=== PATIENT | male | born 1960 | race Caucasian/White ===

== ENCOUNTER 2016-07-01 17:24 | Inpatient (IN) | payer OTHER ==
[~2016-07-01] VITALS: Ht 177.8 cm; Wt 95.0 kg
[~2016-07-01 17:24] MED LIST: ALL180 PO; ATOR-26 PO; ATV1 PO; CLC/300 PO; FLUT0.0529 NAE; FLX10 PO; GEMF600T3 PO; HYDR-3419 PO; OXYC-57 PO; SIMV20TA2 PO; SIMV40TA2 PO
--- NOTE | 2016-07-01 18:00 | DIAGNOSTIC IMAGING REPORT ---
CHEST ONE VIEW PORTABLE CLINICAL HISTORY: eval for pnea chest pain. Dyspnea. COMPARISON STUDY: 03/09/2009 FINDINGS: The bones soft tissues and hemidiaphragms are normal. The cardiomediastinal silhouette is normal. The lungs are clear. The pulmonary vasculature is normal. IMPRESSION: Negative chest. Electronically signed by: Ced Packer M.D. 07/01/2016 5:59 PM Dictated Date/Time: 07/01/2016 5:59 PM
[2016-07-01] MEDS ORDERED: PRED20TA PO (18:01)
[2016-07-01 18:02] LABS: BASO % 0.1 %; BASO ABS # 0.01 K/uL (0-0.2); COMPLETE YES; EOS % 0.1 %; HEMATOCRIT 45.8 % (42-52); IG% 0.3 %; LYMPH % 10.5 %; LYMPH ABS # 1.65 K/uL (1.2-3.4); MEAN CELL VOLUME 91.1 fL (80-100); MEAN CORPUSCULAR HEMOGLOBIN 33.6 pg (25-34); MEAN CORPUSCULAR HGB CONC 36.9 g/dl (32-36); MEAN PLATELET VOLUME 10.4 fL (7.4-10.4); MONO % 3.9 %; NEUT % 85.1 %; PLATELET COUNT 100 K/uL (130-400); RED BLOOD COUNT 5.03 M/uL (4.7-6.1); WHITE BLOOD COUNT 15.78 K/uL (4.8-10.8)
[2016-07-01 18:05] LABS: PARTIAL THROMBOPLASTIN RATIO 1.1; PROTHROMBIN TIME (PATIENT) 10.7 SECONDS (9.0-12.0)
[2016-07-01 18:16] LABS: BUN/CREATININE RATIO 10.5 (10-20); CALCIUM 9.3 mg/dl (8.5-10.1); CREATININE 1.1 mg/dl (0.60-1.40); POTASSIUM 4.1 mmol/L (3.5-5.1)
[2016-07-01] MEDS ORDERED: OPTIRAY 320 IV PRN (18:30)
--- NOTE | 2016-07-01 18:35 | DIAGNOSTIC IMAGING REPORT ---
Venous Doppler left leg LEFT VENOUS DOPP LOWER EXT UNILAT CLINICAL HISTORY: eval for DVT pain. Edema. TECHNIQUE: Venous Doppler COMPARISON STUDY: None FINDINGS: No evidence for deep venous thrombosis. Somewhat dampened venous flow throughout. This may secondary to surrounding soft tissue edematous change. IMPRESSION: No evidence for deep venous thrombosis. Nonspecific soft tissue edema. Electronically signed by: Ced Packer M.D. 07/01/2016 6:34 PM Dictated Date/Time: 07/01/2016 6:33 PM
--- NOTE | 2016-07-01 19:10 | DIAGNOSTIC IMAGING REPORT ---
CHEST CTA for PULMONARY ARTERIES CT DOSE: 446.06 mGy.cm HISTORY: Chest pain dyspnea TECHNIQUE: Multiaxial CT images of the chest were performed following the intravenous administration of contrast to evaluate the pulmonary arteries. Maximal intensity projection images were also obtained. COMPARISON STUDY: None. FINDINGS: Bilateral pulmonary emboli. These occupy the right as well as left lower lobe pulmonary arterial vasculature and to a lesser extent upper lobe pulmonary vasculature. No evidence for a central or saddle type embolus. Bibasilar atelectasis. Mid to upper lungs are clear. IMPRESSION: Extensive bilateral pulmonary emboli, primarily involving the right as well as left lower lobe pulmonary arterial distribution. Bibasilar atelectatic change. Electronically signed by: Ced Packer M.D. 07/01/2016 7:09 PM Dictated Date/Time: 07/01/2016 7:05 PM
[2016-07-01] MEDS ORDERED: HEPARIN 25000 UNIT/500 ML D5W ONE (19:18)
[2016-07-01] MEDS ORDERED: HEPARIN SOD 5000 UNIT/0.5 ML CARP ONE (19:19)
--- NOTE | 2016-07-01 19:43 | EMERGENCY ROOM VISIT NOTE ---
History Report prepared by Tom: Daisha Omer Under the Supervision of: Dr. Mark Rico M.D. First contact with patient: 17:31 Chief Complaint: CARDIAC ASSESSMENT Stated Complaint: SOB, LT LEG SWELLING Nursing Triage Summary: shortness of breath. flu like symptoms for the past week and a half. left lower leg swelling. having chest pains. History of Present Illness The patient is a 55 year old male who presents to the Emergency Room with complaints of persistent shortness of breath that began about 4 days ago. His shortness of breath is worse with exertion and improved with rest. The patient initially had cold-like symptoms 2 weeks ago. 4 days ago, his cold symptoms started to improve but he developed shortness of breath. At that time he also noticed chest pain which he describes as sharp and sore when he takes deep breaths. He also complains of back pain. Per patient's , the patient seems to be moving slow in general because he has trouble catching his breath. He was seen by a [facility] doctor yesterday and was diagnosed with bronchitis and put on doxycycline and Prednisone. The patient is unsure if he has had a fever, but notes that he starts to sweat when exerting himself. Today, the patient noticed swelling and a purple color to his left leg. He states that it feels stiff and it feels like he is dragging a boat anchor when he walks. The patient does have a history of left leg pain due to nerve damage since a spinal fusion, but he had more pain than usual today radiation down his left thigh from his groin. The patient is a smoker. He is a smoker. He does not have a personal history of blood clots in his lungs or legs, although he notes that his father has a history of blood clots in his lungs. Source of History: patient Onset: 4 days ago Position: other (global - shortness of breath) Timing: other (persistent) Modifying Factors (Worsening): exertion Modifying Factors (Relieving): rest Associated Symptoms: + chest pain (with deep breaths) Note: Other symptoms: purple and swollen left leg Review of Systems See HPI for pertinent positives & negatives. A total of 10 systems reviewed and were otherwise negative. Past Medical & Surgical Medical Problems: (1) Pulmonary embolism Surgical Problems: (1) H/O spinal fusion Family History Blood clots Diabetes mellitus Social History Smoking Status: Current Every Day Smoker Marital Status: Occupation Status: employed Current/Historical Medications Scheduled Doxycycline Hyclate (Vibramycin), 100 MG PO BID Gabapentin (Neurontin), 300 MG PO HS Prednisone (Prednisone), 20 MG PO DAILY Scheduled PRN Albuterol Hfa (Ventolin Hfa), 2 PUFFS INH Q4H PRN for Shortness of Breath Allergies Coded Allergies: Penicillins (Verified Allergy, Unknown, NAUSEA/VOMITING, 08/07/13) Physical Exam Vital Signs Date Time Temp Pulse Resp B/P Pulse Ox O2 Delivery O2 Flow Rate FiO2 07/01/16 19:10 94 07/01/16 19:07 96 18 147/83 98 Room Air 07/01/16 17:53 96 Room Air 07/01/16 17:26 37.3 122 18 162/90 96 Physical Exam Constitutional: Vital signs reviewed. Eyes: Pupils are equal round reactive to light. Conjunctiva are noninjected. ENT: Pharynx is clear without erythema or exudate. Mucous membranes are moist. Neck supple without meningeal signs. Respiratory: Clear to auscultation bilaterally. Breath sounds are equal bilaterally. Cardiovascular: Tachycardic with a rate of 110 and regular rhythm. No rubs or gallops. GI: Soft, nondistended and nontender. Bowel sounds are present. Musculoskeletal: Left leg is swollen and discolored. Normal distal pulses. Integumentary: No cyanosis. Neurological: The patient is awake and alert. No focal deficits. Psychiatric: Normal affect. Medical Decision & Procedures ER Provider Diagnostic Interpretation: X-ray results as stated below per interpretation by me and the radiologist. Other radiology results as stated below per my review and the radiologist's interpretation: Venous Doppler left leg LEFT VENOUS DOPP LOWER EXT UNILAT CLINICAL HISTORY: eval for DVT pain. Edema. TECHNIQUE: Venous Doppler COMPARISON STUDY: None FINDINGS: No evidence for deep venous thrombosis. Somewhat dampened venous flow throughout. This may secondary to surrounding soft tissue edematous change. IMPRESSION: No evidence for deep venous thrombosis. Nonspecific soft tissue edema. Electronically signed by: Ced Packer M.D. 07/01/2016 6:34 PM Dictated Date/Time: 07/01/2016 6:33 PM CHEST ONE VIEW PORTABLE CLINICAL HISTORY: eval for pnea chest pain. Dyspnea. COMPARISON STUDY: 03/09/2009 FINDINGS: The bones soft tissues and hemidiaphragms are normal. The cardiomediastinal silhouette is normal. The lungs are clear. The pulmonary vasculature is normal. IMPRESSION: Negative chest. Electronically signed by: Ced Packer M.D. 07/01/2016 5:59 PM Dictated Date/Time: 07/01/2016 5:59 PM CHEST CTA for PULMONARY ARTERIES CT DOSE: 446.06 mGy.cm HISTORY: Chest pain dyspnea TECHNIQUE: Multiaxial CT images of the chest were performed following the intravenous administration of contrast to evaluate the pulmonary arteries. Maximal intensity projection images were also obtained. COMPARISON STUDY: None. FINDINGS: Bilateral pulmonary emboli. These occupy the right as well as left lower lobe pulmonary arterial vasculature and to a lesser extent upper lobe pulmonary vasculature. No evidence for a central or saddle type embolus. Bibasilar atelectasis. Mid to upper lungs are clear. IMPRESSION: Extensive bilateral pulmonary emboli, primarily involving the right as well as left lower lobe pulmonary arterial distribution. Bibasilar atelectatic change. Electronically signed by: Ced Packer M.D. 07/01/2016 7:09 PM Dictated Date/Time: 07/01/2016 7:05 PM Laboratory Results 07/01/16 17:48 Red Blood Count 5.03, Mean Corpuscular Volume 91.1, Mean Corpuscular Hemoglobin 33.6, Mean Corpuscular Hemoglobin Concent 36.9, Mean Platelet Volume 10.4, Neutrophils (%) (Auto) 85.1, Lymphocytes (%) (Auto) 10.5, Monocytes (%) (Auto) 3.9, Eosinophils (%) (Auto) 0.1, Basophils (%) (Auto) 0.1, Neutrophils # (Auto) 13.44, Lymphocytes # (Auto) 1.65, Monocytes # (Auto) 0.61, Eosinophils # (Auto) 0.02, Basophils # (Auto) 0.01 07/01/16 17:48 Test 07/01/16 17:48 07/01/16 17:50 White Blood Count 15.78 K/uL (4.8-10.8) Red Blood Count 5.03 M/uL (4.7-6.1) Hemoglobin 16.9 g/dL (14.0-18.0) Hematocrit 45.8 % (42-52) Mean Corpuscular Volume 91.1 fL (80-100) Mean Corpuscular Hemoglobin 33.6 pg (25-34) Mean Corpuscular Hemoglobin Concent 36.9 g/dl (32-36) Platelet Count 100 K/uL (130-400) Mean Platelet Volume 10.4 fL (7.4-10.4) Neutrophils (%) (Auto) 85.1 % Lymphocytes (%) (Auto) 10.5 % Monocytes (%) (Auto) 3.9 % Eosinophils (%) (Auto) 0.1 % Basophils (%) (Auto) 0.1 % Neutrophils # (Auto) 13.44 K/uL (1.4-6.5) Lymphocytes # (Auto) 1.65 K/uL (1.2-3.4) Monocytes # (Auto) 0.61 K/uL (0.11-0.59) Eosinophils # (Auto) 0.02 K/uL (0-0.5) Basophils # (Auto) 0.01 K/uL (0-0.2) RDW Standard Deviation 40.6 fL (36.4-46.3) RDW Coefficient of Variation 12.2 % (11.5-14.5) Immature Granulocyte % (Auto) 0.3 % Immature Granulocyte # (Auto) 0.05 K/uL (0.00-0.02) Prothrombin Time 10.7 SECONDS (9.0-12.0) Prothromb Time International Ratio 1.0 (0.9-1.1) Activated Partial Thromboplast Time 27.8 SECONDS (21.0-31.0) Partial Thromboplastin Ratio 1.1 Anion Gap 10.0 mmol/L (3-11) Est Creatinine Clear Calc Drug Dose 90.3 ml/min Estimated GFR () 88.4 Estimated GFR (Non- 76.2 BUN/Creatinine Ratio 10.5 (10-20) Calcium Level 9.3 mg/dl (8.5-10.1) Bedside D-Dimer > 450 ng/mlFEU (0-450) Bedside Troponin I 0.000 ng/ml (0-0.045) Laboratory results as reviewed by me. Medications Administered Medications (Trade) Dose Ordered Sig/Narciso Route Start Time Stop Time Status Last Admin Dose Admin Heparin Sodium/ Dextrose (Heparin 25,000 Unit/500ml D5W) 25,000 unit STK-MED ONCE .ROUTE 07/01/16 19:18 07/01/16 19:20 DC 07/01/16 19:28 25,000 UNIT Heparin Sodium (Porcine) (Heparin Sq 5000 Unit/0.5ml) 10,000 unit STK-MED ONCE .ROUTE 07/01/16 19:19 07/01/16 19:20 DC 07/01/16 19:29 7,000 UNIT ECG Indication: SOB/dyspnea Rate (beats per minute): 110 Rhythm: normal sinus Findings: no acute ischemic change, no ectopy ED Course 1731: The patient was evaluated in room C6. A complete history and physical exam was performed. 1824: I reassessed the patient and talked to him about ultrasound results. I discussed the risks of heparin. Ordered Heparin Sodium/Dextrose 1 ea. 1914: I reassessed the patient and discussed the rest of his results with him. He agreed with the treatment plan. 1923: I discussed the [facility] The patient will be evaluated for further management. Medical Decision This is a 55-year-old male who presents with chest pain, shortness of breath, back pain and left leg pain and swelling. Differential diagnosis includes DVT, pulmonary emboli, pneumonia, pneumothorax, pleural effusion, pericarditis. I did perform a limited focused review of portions of the patient's old chart on the electronic medical record. The patient has had no recent pertinent visits to this hospital. I did evaluate the patient as noted above. The patient has a history concerning for pulmonary embolism. He has had chest pain and shortness of breath with back pain and developed left leg swelling and pain. He is a smoker and states that he has not been active since he has been sick over the past 2 weeks. IV access was established. 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 I did order and personally review the patient's 12-lead EKG and chest x-ray as described above. I did order and review the patient's blood work as noted in the electronic medical record. I did order an ultrasound of the left lower extremity. To me it looked like he had a clot in the leg but the radiologist read it as negative. I did order a CT of the chest. I did review the images myself as well as the radiology report as described above. He does have multiple bilateral pulmonary emboli. The patient was started on IV heparin after I discuss risks and benefits. I did discuss the test results with the patient and his family. I did discuss the case with Dr. Garcia who admitted the patient. Consults Time Called: 1916 Consulting Physician: Dr. Neli Spence Hospitalist Returned Call: 1923 I discussed the case with him. The patient will be evaluated for further management. Impression Primary Impression: Multiple pulmonary emboli Critical Care I have personally spent greater than 30 minutes of critical care time in the direct management of this patient. This includes bedside care, interpretation of diagnostic studies, and testing, discussion with consultants, patient, and family members, and other required patient management activities. This 30 minutes is in excess of all separately billable procedures. Scribe Attestation The scribe's documentation has been prepared under my direct and personally reviewed by me in its entirety. I confirm that the note above accurately reflects all work, treatment, procedures, and medical decision making performed by me. Departure Information Dispostion Being Evaluated By Hospitalist Renan Nguyen M.D. (PCP) Patient Instructions [facility]
[2016-07-01] MEDS ORDERED: ACETAMINOPHEN 325 MG TAB PO PRN (19:45)
[2016-07-01] MEDS ORDERED: ONDANSETRON INJ 2 MG/ML 2 ML VIAL IV PRN (19:45)
[2016-07-01 20:58] VITALS: O2SAT 98; Ht 177.8 cm; Wt 95.0 kg
[2016-07-01 21:07] VITALS: BP 145/77; PULSE 93; TEMP 37.2; O2SAT 96
[2016-07-01] MEDS ORDERED: GABAPENTIN 300 MG CAP PO ONE (21:52)
--- NOTE | 2016-07-01 21:52 | History and Physical ---
History & Physical Date & Time of Service: Jul 01, 2016 at 21:52 Chief Complaint: chest pain, shortness of breath . Primary Care Physician: Renan Love M.D. . History of Present Illness Source: patient, family, clinic records, hospital records 55 YO male followed by Dr. Love. He generally enjoys relatively good health. Had upper respiratory symptoms last week- sneezing, nasal congestion, rhinorrhea. Symptoms improved. Subsequently developed nonproductive cough and dyspnea. Evaluated in clinic a few days ago; prescribed doxycycline, prednisone, albuterol for bronchitis. Today he noted increasing shortness of breath, dyspneic after walking just 5 steps. Also noted right-sided pleuritic chest pain and left lower extremity swelling and discomfort. Came to ED for evaluation. CTA chest demonstrated multiple bilateral PE's. No recent travel. No bedrest. No recent surgeries. No prior personal history of VTE. Father reportedly had pulmonary embolism. . Past Medical/Surgical History Chronic Medical Problems: (1) Dyslipidemia Status: Chronic (2) History of Lyme disease Status: Chronic (3) Spinal stenosis of lumbar region Status: Chronic (4) Tobacco abuse Status: Chronic Surgical Problems: (1) H/O sinus surgery Status: Chronic (2) H/O spinal fusion Status: Chronic . Family History MOTHER Diabetes mellitus Breast cancer GRANDMOTHER Diabetes mellitus FATHER COPD (chronic obstructive pulmonary disease) Pulmonary embolism Social History Smoking Status: Current Every Day Smoker Alcohol Use: none Marital Status: Occupational Status: employed Immunizations History of Influenza Vaccine: Yes History of Tetanus Vaccine?: No History of Pneumococcal: No History of Hepatitis B Vaccine: No Multi-Drug Resistant Organisms History of MDRO: No Allergies Coded Allergies: Penicillins (Verified Allergy, Unknown, NAUSEA/VOMITING, 08/07/13) Home Medications Scheduled Apixaban (Eliquis), 10 MG PO UD Doxycycline Hyclate (Vibramycin), 100 MG PO BID Gabapentin (Neurontin), 300 MG PO HS Prednisone (Prednisone), 20 MG PO DAILY Scheduled PRN Albuterol Hfa (Ventolin Hfa), 2 PUFFS INH Q4H PRN for Shortness of Breath Review of Systems Constitutional: No fever, No weight loss Eyes: + diplopia (chronic), No worsening of vision ENT: + nasal symptoms, No hearing loss Respiratory: + problem reported (as noted above) Cardiovascular: + problem reported (as noted above) Abdomen: + nausea (mild), No GI bleeding, No diarrhea, No pain, No vomiting Musculoskeletal: + problem reported (back pain) Genitourinary - Male: No dysuria, No hematuria Neurologic: + problem reported (chronic LLE pain & weakness) Endocrine: No excessive thirst, No excessive urination Hematologic / Lymphatic: No abnormal bleeding/bruising Integumentary: No new/changing skin lesions, No rash Physical Exam Vital Signs Date Time Temp Pulse Resp B/P Pulse Ox O2 Delivery O2 Flow Rate FiO2 07/01/16 21:07 37.2 93 18 145/77 96 Room Air 07/01/16 20:58 98 Room Air 07/01/16 19:10 94 07/01/16 19:07 96 18 147/83 98 Room Air 07/01/16 17:53 96 Room Air 07/01/16 17:26 37.3 122 18 162/90 96 General Appearance: WD/WN, no apparent distress Head: normocephalic, atraumatic Eyes: normal inspection, PERRL, EOMI, sclerae normal (conjunctivae normal) ENT: normal ENT inspection, hearing grossly normal, pharynx normal Neck: supple, no adenopathy, thyroid normal, no JVD, trachea midline Respiratory/Chest: lungs clear, no respiratory distress, no accessory muscle use Cardiovascular: regular rate, rhythm, no edema, no gallop, no JVD, no murmur Abdomen/GI: normal bowel sounds, non tender, soft, no organomegaly, no pulsatile mass Extremities/Musculoskelatal: + pertinent finding (1+ edema of left lower extremity; no calf tenderness) Neurologic/Psych: undercollar maker II-XII nml as tested (PERRL), no motor/sensory deficits ( grossly intact), alert, normal mood/affect, oriented x 3 Skin: normal color, warm/dry, no rash Lymphatic: no adenopathy Diagnostics Laboratory Results Results Past 24 Hours Test 07/01/16 17:48 07/01/16 17:50 Range/Units White Blood Count 15.78 4.8-10.8 K/uL Red Blood Count 5.03 4.7-6.1 M/uL Hemoglobin 16.9 14.0-18.0 g/dL Hematocrit 45.8 42-52 % Mean Corpuscular Volume 91.1 80-100 fL Mean Corpuscular Hemoglobin 33.6 25-34 pg Mean Corpuscular Hemoglobin Concent 36.9 32-36 g/dl Platelet Count 100 130-400 K/uL Mean Platelet Volume 10.4 7.4-10.4 fL Neutrophils (%) (Auto) 85.1 % Lymphocytes (%) (Auto) 10.5 % Monocytes (%) (Auto) 3.9 % Eosinophils (%) (Auto) 0.1 % Basophils (%) (Auto) 0.1 % Neutrophils # (Auto) 13.44 1.4-6.5 K/uL Lymphocytes # (Auto) 1.65 1.2-3.4 K/uL Monocytes # (Auto) 0.61 0.11-0.59 K/uL Eosinophils # (Auto) 0.02 0-0.5 K/uL Basophils # (Auto) 0.01 0-0.2 K/uL RDW Standard Deviation 40.6 36.4-46.3 fL RDW Coefficient of Variation 12.2 11.5-14.5 % Immature Granulocyte % (Auto) 0.3 % Immature Granulocyte # (Auto) 0.05 0.00-0.02 K/uL Prothrombin Time 10.7 9.0-12.0 SECONDS Prothromb Time International Ratio 1.0 0.9-1.1 Activated Partial Thromboplast Time 27.8 21.0-31.0 SECONDS Partial Thromboplastin Ratio 1.1 Sodium Level 139 136-145 mmol/L Potassium Level 4.1 3.5-5.1 mmol/L Chloride Level 103 98-107 mmol/L Carbon Dioxide Level 26 21-32 mmol/L Anion Gap 10.0 3-11 mmol/L Blood Urea Nitrogen 12 7-18 mg/dl Creatinine 1.10 0.60-1.40 mg/dl Est Creatinine Clear Calc Drug Dose 90.3 ml/min Estimated GFR () 88.4 Estimated GFR (Non- 76.2 BUN/Creatinine Ratio 10.5 10-20 Random Glucose 148 70-99 mg/dl Calcium Level 9.3 8.5-10.1 mg/dl Bedside D-Dimer > 450 0-450 ng/mlFEU Bedside Troponin I 0.000 0-0.045 ng/ml Diagnostic Radiology CHEST ONE VIEW PORTABLE IMPRESSION: Negative chest. Electronically signed by: Ced Packer M.D. 07/01/2016 5:59 PM CHEST CTA for PULMONARY ARTERIES FINDINGS: Bilateral pulmonary emboli. These occupy the right as well as left lower lobe pulmonary arterial vasculature and to a lesser extent upper lobe pulmonary vasculature. No evidence for a central or saddle type embolus. Bibasilar atelectasis. Mid to upper lungs are clear. IMPRESSION: Extensive bilateral pulmonary emboli, primarily involving the right as well as left lower lobe pulmonary arterial distribution. Bibasilar atelectatic change. Electronically signed by: Ced Packer M.D. 07/01/2016 7:09 PM LEFT VENOUS DOPP LOWER EXT UNILAT FINDINGS: No evidence for deep venous thrombosis. Somewhat dampened venous flow throughout. This may secondary to surrounding soft tissue edematous change. IMPRESSION: No evidence for deep venous thrombosis. Nonspecific soft tissue edema. Electronically signed by: Ced Packer M.D. 07/01/2016 6:34 PM . Impression Assessment and Plan ACUTE BILATERAL PULMONARY EMBOLI (present on admission) History as detailed above. Recent URI, but not severely ill and not at bedrest. No recent travel, surgery. He is a smoker. Father apparently had PE. However, work-up for hypercoagulable conditions not appropriate at this time per guidelines. Venous duplex findings surprising for absence of DVT LLE. Either (1) patient had a proximal clot that embolized that is no longer present in the lower extremity or (2) he has a more proximal (e.g., pelvic) clot. May be useful to do CT of abdomen, pelvis, proximal lower extremities with contrast, but should wait at least 24 hours between administrations of IV contrast. IV heparin started in ED. Transition to oral agent- pros and cons of warfarin vs newer agents discussed. Check TTE to assess RV parameters. Thigh-high RENATA LLE to try to prevent / minimize post-thrombotic syndrome. Patient should maintain routine cancer screening per guidelines. Suggested outpatient Hematology consultation for long-term recommendations regarding duration of therapy and possible work-up for hypercoagulable conditions. TOBACCO USE Smoking cessation counseling. DISPOSITION Admitted to Telemetry Unit. Expected discharge to home. Family Medicine follow-up with Dr. Love. . Advanced Directives Existing Advance Directive: No Existing Living Will: No Existing Power of Production Laborer: No VTE Prophylaxis VTE Risk Assessment Done? Y/N: Yes Risk Level: High Given or contraindicated: Other Anticoagulation (IV heparin)
[2016-07-01] MEDS ORDERED: OXYCODONE/ACETAMINOPHEN 5-325 TAB PO PRN (22:00)
[2016-07-01] MEDS ORDERED: METHYLPREDNISOLONE IV 40 MG in SYRINGE 0 ML IV STA (22:03)
[2016-07-01] MEDS ORDERED: HEPARIN 25,000 UNIT/500ML D5W 500 ML IV PRN (22:15)
[2016-07-01 23:08] VITALS: BP 129/78; PULSE 89; TEMP 36.3; O2SAT 96
[2016-07-02 02:26] LABS: PARTIAL THROMBOPLASTIN RATIO 1.7
[2016-07-02] MEDS ORDERED: HEPARIN IV BOLUS 3,000 UNIT in SYRINGE 0 ML IV STA (02:47)
[2016-07-02 04:18] VITALS: BP 108/67; PULSE 75; TEMP 36.4; O2SAT 91
[2016-07-02 07:58] VITALS: BP 116/74; PULSE 81; TEMP 36.9; O2SAT 94
[2016-07-02 09:11] LABS: PARTIAL THROMBOPLASTIN RATIO 1.9
[2016-07-02] MEDS ORDERED: APIX1TAB3 PO (09:32)
--- NOTE | 2016-07-02 09:37 | Discharge Instructions ---
Discharge Instructions Admission Reason for Admission: Pulmonary Embolism Discharge Discharge Diagnosis / Problem: acute pulmonary embolism Discharge Goals Goal(s): Decrease discomfort Activity Recommendations Activity Limitations: resume your previous activity . Instructions / Follow-Up Instructions / Follow-Up FOLLOWUP WITH FAMILY DOCTOR Renan Clark ON Jul AT 12:50PM FOLLOWUP WITH HEMATOLOGY/ONCOLOGY WITH FAMILY DOCTOR REFERRAL. DURATION OF ANTICOAGULATION WITH ELIQUIS PER FAMILY DOCTOR OR HEMATOLOGY/ ONCOLOGY. TO TAKE ELIQUIS 10MG PO TWICE DAILY FOR 7 DAYS THEN ELIQUIS 5MG PO TWICE DAILY UNTIL FURTHER INSTRUCTION FROM FAMILY DOCTOR OR HEMATOLOGY/ONCOLOGY. Current Hospital Diet Patient's current hospital diet: Regular Diet Discharge Diet Recommended Diet: AHA Diet (Heart Healthy) Pending Studies Studies pending at discharge: no Medical Emergencies . Who to Call and When: Medical Emergencies: If at any time you feel your situation is an emergency, please call 911 immediately. . Non-Emergent Contact Non-Emergency issues call your: Primary Care Provider . . "Provider Documentation" section prepared by Naveed Ferguson. VTE Core Measure Inpt VTE Proph given/why not?: Other Anticoagulation (IV HEPARIN)
[2016-07-02] MEDS ORDERED: APIXABAN 2.5 MG TAB PO SCH (10:00)
[2016-07-02 10:31] VITALS: BP 116/74; PULSE 81; TEMP 36.9; O2SAT 94
--- NOTE | 2016-07-02 12:05 | ECHOCARDIOGRAM REPORT ---
*NOTICE TO RECEIVING DEMOCRAT AGENCY This information is strictly Confidential and protected under [place] law. [place] law prohibits you from making any further disclosure of this information unless further disclosure is expressly permitted by the written consent of the person to whom it pertains or is authorized by law. A general authorization for the release of medical or other information is not sufficient for this purpose. Hospital accepts no responsibility if the information is made available to any other person, INCLUDING THE PATIENT. Interpretation Summary * Name: STEFAN THOMAS Study Date: 07/02/2016 12:00 PM BP: 116/74 mmHg * Patient Location: C.2E\S\E210\S\1 HR: 79 * : 1960 (M/d/yyyy) Gender: Male Height: 70 in * Age: 55 yrs Ethnicity: [place] Weight: 209 lb * Ordering Physician: Naveed Ferguson * Referring Physician: Self, Referred * Performed By: Jessica Centeno, [facility] * * Reason For Study: PE * BSA: 2.1 m2 * -- Conclusions -- * The left ventricle is normal in size. * There is moderate concentric left ventricular hypertrophy. * The left ventricular wall motion is normal. * Left ventricular systolic function is normal. * Ejection Fraction = 60-65%. * The right ventricle is normal in size and function. * There is trace tricuspid regurgitation. * Doppler findings do not suggest pulmonary hypertension. Procedure Details * A complete two-dimensional transthoracic echocardiogram was performed (2D, M-mode, Doppler and color flow Doppler). Left Ventricle * The left ventricle is normal in size. * There is moderate concentric left ventricular hypertrophy. * Left ventricular systolic function is normal. * Ejection Fraction = 60-65%. * The left ventricular wall motion is normal. Right Ventricle * The right ventricle is normal in size and function. Atria * Borderline left atrial enlargement. * Right atrial size is normal. * No ASD detected; PFO is not assessed. Mitral Valve * The mitral valve anatomy is normal. * There is no mitral valve stenosis. * There is trace mitral regurgitation. Tricuspid Valve * The tricuspid valve anatomy is normal. * There is no tricuspid stenosis. * There is trace tricuspid regurgitation. * Doppler findings do not suggest pulmonary hypertension. Aortic Valve * The aortic valve is trileaflet. * Aortic valve sclerosis mild, without significant aortic valvular stenosis. * No aortic regurgitation is present. Pulmonic Valve * The pulmonic valve is not well visualized. Great Vessels * The aortic root is normal size. Pericardium/Pleural * There is no pericardial effusion. MMode 2D Measurements and Calculations IVSd 1.7 cm IVSs 1.9 cm LVIDd 3.7 cm LVIDs 2.3 cm LVPWd 1.3 cm LVPWs 1.4 cm IVS/LVPW 1.3 FS 38.9 % EDV(Teich) 59.2 ml ESV(Teich) 17.7 ml EF(Teich) 70.1 % EDV(cubed) 51.9 ml ESV(cubed) 11.8 ml EF(cubed) 77.2 % % IVS thick 15.7 % % LVPW thick 6.5 % LV mass(C)d 212.5 grams LV mass(C)dI 99.9 grams/m\S\2 LV mass(C)s 140.1 grams LV mass(C)sI 65.9 grams/m\S\2 SV(Teich) 41.5 ml SI(Teich) 19.5 ml/m\S\2 SV(cubed) 40.0 ml SI(cubed) 18.8 ml/m\S\2 Ao root diam 3.8 cm Ao root area 11.2 cm\S\2 ACS 2.1 cm LA dimension 4.0 cm LA/Ao 1.1 LVOT diam 1.9 cm LVOT area 2.8 cm\S\2 LVAd ap4 28.4 cm\S\2 LVLd ap4 7.9 cm EDV(MOD-sp4) 85.5 ml EDV(sp4-el) 86.1 ml LVAs ap4 18.2 cm\S\2 LVLs ap4 6.6 cm ESV(MOD-sp4) 44.5 ml ESV(sp4-el) 42.3 ml EF(MOD-sp4) 48.0 % EF(sp4-el) 50.8 % SV(MOD-sp4) 41.0 ml SI(MOD-sp4) 19.3 ml/m\S\2 SV(sp4-el) 43.7 ml SI(sp4-el) 20.6 ml/m\S\2 Doppler Measurements and Calculations MV E max margie 63.6 cm/sec MV A max margie 69.0 cm/sec MV E/A 0.92 MV P1/2t max margie 87.1 cm/sec MV P1/2t 47.0 msec MVA(P1/2t) 4.7 cm\S\2 MV dec slope 542.6 cm/sec\S\2 MV dec time 0.30 sec Ao V2 max 116.4 cm/sec Ao max PG 5.4 mmHg Ao max PG (full) 1.6 mmHg KATHRYN(V,A) 2.4 cm\S\2 KATHRYN(V,D) 2.4 cm\S\2 LV V1 max PG 3.8 mmHg LV V1 max 97.6 cm/sec PA V2 max 102.4 cm/sec PA max PG 4.2 mmHg PI max margie 209.5 cm/sec PI max PG 17.6 mmHg PI dec slope 406.8 cm/sec\S\2 PI P1/2t 150.9 msec
--- NOTE | 2016-07-02 18:57 | Progress Note ---
Internal Med Progress Note Date of Service: Jul 02, 2016. Provider Documentation: SUBJECTIVE: patient feeling better denies any chest pain or sob afebrile patient choose to be on eliquis( Want the eliquis so that he can be discharged soon) OBJECTIVE: Vital Signs-as noted below Exam: General-alert and oriented ENT-normal hearing Neck-no neck masses Lungs-cta b/l no wheezing or crackles Heart-s1 and s2 heard regular rate and rhythm no murmurs Abdomen-soft bowel sounds present non tender no distension Extremities-left lower extremity swollen non tender Neuro-alert and awake moves extremities Lab data as noted below. ASSESSMENT & PLAN: ACUTE BILATERAL PULMONARY EMBOLI (present on admission) on CT scan Unprovoked Family history significant as father had PE IV heparin initiated in ER ECHO moderate LVH otherwise unremarkable Work-up for hypercoagulable conditions not appropriate at this time per guidelines and advise to followup with heme/oncology Left lower extremity swollen but negative for DVT LLE. Either (1) patient had a proximal clot that embolized that is no longer present in the lower extremity or (2) he has a more proximal (e.g., pelvic) clot. May be useful to do CT of abdomen, pelvis, proximal lower extremities with contrast, but should wait at least 24 hours between administrations of IV contrast. Patient choose to be on eliquis. Discharged home on eliquis and notified family doctor for f/u with CT abd/ pelvis with iv contrast to check for any underlying condition for his left lower extremity swelling. HAs appointment with family doctor on Jul 06. Thigh-high RENATA LLE to try to prevent / minimize post-thrombotic syndrome recommended. Patient should maintain routine cancer screening per guidelines. Recommended outpatient Hematology consultation for long-term recommendations regarding duration of therapy and possible work-up for hypercoagulable conditions. TOBACCO USE Smoking cessation counseling. DISPOSITION Discharged home Vital Signs: Date Time Temp Pulse Resp B/P Pulse Ox O2 Delivery O2 Flow Rate FiO2 07/02/16 10:31 36.9 81 16 94 Room Air 07/02/16 08:00 Room Air 07/02/16 07:58 36.9 81 16 116/74 94 Room Air 07/02/16 04:18 36.4 75 18 108/67 91 Room Air 07/02/16 04:00 Room Air 07/01/16 23:59 Room Air 07/01/16 23:08 36.3 89 18 129/78 96 Room Air 07/01/16 21:07 37.2 93 18 145/77 96 Room Air 07/01/16 20:58 98 Room Air 07/01/16 19:10 94 07/01/16 19:07 96 18 147/83 98 Room Air Lab Results: Results Past 24 Hours Test 07/02/16 01:47 07/02/16 08:45 Range/Units Activated Partial Thromboplast Time 44.8 49.4 21.0-31.0 SECONDS Partial Thromboplastin Ratio 1.7 1.9
--- NOTE | 2016-07-02 19:07 | Discharge Summary ---
Discharge Summary Admission Date: Jul 01, 2016 at 21:03 Discharge Date: Jul 02, 2016 Discharge Disposition: Home Principal Diagnosis: B/L PE Secondary Diagnoses/Problems: (1) Dyslipidemia Status: Chronic (2) History of Lyme disease Status: Chronic (3) Spinal stenosis of lumbar region Status: Chronic (4) Tobacco abuse Status: Chronic Procedures: LEFT LOWER EXTREMITY DOPPLER: IMPRESSION: No evidence for deep venous thrombosis. Nonspecific soft tissue edema. CTA CHEST: Extensive bilateral pulmonary emboli, primarily involving the right as well as left lower lobe pulmonary arterial distribution. Bibasilar atelectatic change. ECHO: The left ventricle is normal in size. * There is moderate concentric left ventricular hypertrophy. * The left ventricular wall motion is normal. * Left ventricular systolic function is normal. * Ejection Fraction = 60-65%. * The right ventricle is normal in size and function. * There is trace tricuspid regurgitation. * Doppler findings do not suggest pulmonary hypertension. Medication Reconciliation New Medications: Apixaban (Eliquis) 5 Mg Tab 10 MG PO UD for 30 Days, 3 Refills ELIQUIS 10MG PO TWICE DAILY FOR ONE WEEK THEN ELIQUIS 5MG PO TWICE DAILY Continued Medications: Albuterol Hfa (Ventolin Hfa) 200 Puffs/16833 Mcg Aers 2 PUFFS INH Q4H PRN for Shortness of Breath Doxycycline Hyclate (Vibramycin) 100 Mg Cap 100 MG PO BID, #14 PRESCRIBED 06/30/2016, TAKE DIRECTED UNTIL GONE Gabapentin (Neurontin) 300 Mg Cap 300 MG PO HS, CAP Prednisone (Prednisone) 20 Mg Tab 20 MG PO DAILY, #5 PRESCRIBED 06/30/2016, TAKE DIRECTED UNTIL GONE Admission Information HPI (per Admitting provider): 55 YO male followed by Dr. Love. He generally enjoys relatively good health. Had upper respiratory symptoms last week- sneezing, nasal congestion, rhinorrhea. Symptoms improved. Subsequently developed nonproductive cough and dyspnea. Evaluated in clinic a few days ago; prescribed doxycycline, prednisone, albuterol for bronchitis. Today he noted increasing shortness of breath, dyspneic after walking just 5 steps. Also noted right-sided pleuritic chest pain and left lower extremity swelling and discomfort. Came to ED for evaluation. CTA chest demonstrated multiple bilateral PE's. No recent travel. No bedrest. No recent surgeries. No prior personal history of VTE. Father reportedly had pulmonary embolism. . Physical Exam (per Admitting): General Appearance: WD/WN, no apparent distress Head: normocephalic, atraumatic Eyes: normal inspection, PERRL, EOMI, sclerae normal (conjunctivae normal) ENT: normal ENT inspection, hearing grossly normal, pharynx normal Neck: supple, no adenopathy, thyroid normal, no JVD, trachea midline Respiratory/Chest: lungs clear, no respiratory distress, no accessory muscle use Cardiovascular: regular rate, rhythm, no edema, no gallop, no JVD, no murmur Abdomen/GI: normal bowel sounds, non tender, soft, no organomegaly, no pulsatile mass Extremities/Musculoskelatal: + pertinent finding (1+ edema of left lower extremity; no calf tenderness) 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), no motor/sensory deficits (grossly intact), alert, normal mood/affect, oriented x 3 Skin: normal color, warm/dry, no rash Lymphatic: no adenopathy Physical Exam (per Admitting): General Appearance: WD/WN, no apparent distress Head: normocephalic, atraumatic Eyes: normal inspection, PERRL, EOMI, sclerae normal (conjunctivae normal) ENT: normal ENT inspection, hearing grossly normal, pharynx normal Neck: supple, no adenopathy, thyroid normal, no JVD, trachea midline Respiratory/Chest: lungs clear, no respiratory distress, no accessory muscle use Cardiovascular: regular rate, rhythm, no edema, no gallop, no JVD, no murmur Abdomen/GI: normal bowel sounds, non tender, soft, no organomegaly, no pulsatile mass Extremities/Musculoskelatal: + pertinent finding (1+ edema of left lower extremity; no calf tenderness) 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 ACUTE BILATERAL PULMONARY EMBOLI (present on admission) on CT scan Unprovoked Family history significant as father had PE IV heparin initiated in ER ECHO moderate LVH otherwise unremarkable Work-up for hypercoagulable conditions not appropriate at this time per guidelines and advise to followup with heme/oncology Left lower extremity swollen but negative for DVT LLE. Either (1) patient had a proximal clot that embolized that is no longer present in the lower extremity or (2) he has a more proximal (e.g., pelvic) clot. May be useful to do CT of abdomen, pelvis, proximal lower extremities with contrast, but should wait at least 24 hours between administrations of IV contrast. Patient choose to be on eliquis. Discharged home on eliquis and notified family doctor for f/u with CT abd/ pelvis with iv contrast to check for any underlying condition for his left lower extremity swelling. HAs appointment with family doctor on Jul 06. Thigh-high RENATA LLE to try to prevent / minimize post-thrombotic syndrome recommended. Patient should maintain routine cancer screening per guidelines. Recommended outpatient Hematology consultation for long-term recommendations regarding duration of therapy and possible work-up for hypercoagulable conditions. TOBACCO USE Smoking cessation counseling. DISPOSITION Discharged home Total time spent on discharge = 35MINUTES This includes examination of the patient, discharge planning, medication reconciliation, and communication with other providers. Discharge Instructions Please take this sheet to every appointment for the next month Discharge Instructions Admission Reason for Admission: Pulmonary Embolism Discharge Discharge Diagnosis / Problem: acute pulmonary embolism Discharge Goals Goal(s): Decrease discomfort Activity Recommendations Activity Limitations: resume your previous activity . Instructions / Follow-Up Instructions / Follow-Up FOLLOWUP WITH FAMILY DOCTOR Renan Clark ON Jul AT 12:50PM FOLLOWUP WITH HEMATOLOGY/ONCOLOGY WITH FAMILY DOCTOR REFERRAL. DURATION OF ANTICOAGULATION WITH ELIQUIS PER FAMILY DOCTOR OR HEMATOLOGY/ ONCOLOGY. TO TAKE ELIQUIS 10MG PO TWICE DAILY FOR 7 DAYS THEN ELIQUIS 5MG PO TWICE DAILY UNTIL FURTHER INSTRUCTION FROM FAMILY DOCTOR OR HEMATOLOGY/ONCOLOGY. Current Hospital Diet Patient's current hospital diet: Regular Diet Discharge Diet Recommended Diet: AHA Diet (Heart Healthy) Pending Studies Studies pending at discharge: no Medical Emergencies . Who to Call and When: Medical Emergencies: If at any time you feel your situation is an emergency, please call 911 immediately. . Non-Emergent Contact Non-Emergency issues call your: Primary Care Provider . . "Provider Documentation" section prepared by Naveed Ferguson. VTE Core Measure Inpt VTE Proph given/why not?: Other Anticoagulation (IV HEPARIN)
[2016-07-02] MEDS ORDERED: GABAPENTIN 300 MG CAP PO SCH (21:00)
[2016-07-06] MEDS ORDERED: GABA-113 PO (07:44)
[2016-08-14] MEDS ORDERED: APIX1TAB3 PO (09:29)
== END 2016-07-02 13:11 | disposition home or self-care (01) | DRG 176 ==
LOC: ENRESERVTM → ENRESERVDT → CANRESERV → C.EDC 17:25 → C.2E 21:03
PROVIDERS: ADMIT Hospitalist; ATTEND Internal Medicine
DX: I26.99 Other pulmonary embolism without acute cor pulmonale (principal); J40 Bronchitis, not specified as acute or chronic; M79.605 Pain in left leg; M79.89 Other specified soft tissue disorders; E78.5 Hyperlipidemia, unspecified; I51.7 Cardiomegaly; F17.210 Nicotine dependence, cigarettes, uncomplicated; Z86.19 Personal history of other infectious and parasitic diseases; Z83.2 Family history of diseases of the blood and blood-forming organs and certain disorders involving the immune mechanism; Z79.899 Other long term (current) drug therapy

== ENCOUNTER 2016-07-06 11:42 | Emergency (ER) | payer OTHER ==
[~2016-07-06] VITALS: Ht 177.8 cm; Wt 98.4 kg
[~2016-07-06 11:42] MED LIST changes: -ALL180 PO; +APIX1TAB3 PO; -ATOR-26 PO; -ATV1 PO; -CLC/300 PO; -FLUT0.0529 NAE; -FLX10 PO; +GABA-113 PO; -GEMF600T3 PO; -HYDR-3419 PO; -OXYC-57 PO; +PRED20TA PO; -SIMV20TA2 PO; -SIMV40TA2 PO
[2016-07-06 11:46] VITALS: TEMP 37; Ht 177.8 cm; Wt 98.4 kg
[2016-07-06] MEDS ORDERED: APIX1TAB3 PO (12:03)
[2016-07-06 12:49] LABS: BASO % 0.3 %; BASO ABS # 0.04 K/uL (0-0.2); COMPLETE YES; EOS % 2.9 %; HEMATOCRIT 44.5 % (42-52); IG% 0.5 %; LYMPH % 22.3 %; LYMPH ABS # 2.69 K/uL (1.2-3.4); MEAN CELL VOLUME 92.3 fL (80-100); MEAN CORPUSCULAR HEMOGLOBIN 33.6 pg (25-34); MEAN CORPUSCULAR HGB CONC 36.4 g/dl (32-36); MONO % 8.5 %; NEUT % 65.5 %; PLATELET COUNT 148 K/uL (130-400); RED BLOOD COUNT 4.82 M/uL (4.7-6.1); WHITE BLOOD COUNT 12.06 K/uL (4.8-10.8)
[2016-07-06 13:04] LABS: PARTIAL THROMBOPLASTIN RATIO 1.1; PROTHROMBIN TIME (PATIENT) 11.1 SECONDS (9.0-12.0)
[2016-07-06 13:07] LABS: CREATININE 1.1 mg/dl (0.60-1.40); POTASSIUM 3.8 mmol/L (3.5-5.1)
[2016-07-06 13:18] LABS: URINE APPEARANCE CLEAR (CLEAR); URINE BILIRUBIN NEG (NEG); URINE COLOR YELLOW; URINE EPITHELIAL CELL AUTO 0-5 /lpf (0-5); URINE NITRITE NEG (NEG); URINE PH 5.5 (4.5-7.5); URINE SPECIFIC GRAVITY 1.006 (1.000-1.030); UROBILINOGEN NEG (NEG); ZZUR CULT IF INDIC CLEAN CATCH NO
[2016-07-06] MEDS ORDERED: OPTIRAY 320 IV PRN (13:30)
[2016-07-06 13:32] LABS: MANUAL MICROSCOPIC REQUIRED? NO; REVIEW REQ? NO
--- NOTE | 2016-07-06 15:08 | DIAGNOSTIC IMAGING REPORT ---
ULTRASOUND LEFT LOWER EXTREMITY VENOUS CLINICAL HISTORY: Left leg pain. COMPARISON STUDY: Left lower extremity venous ultrasound dated 07/01/2016. TECHNIQUE: Real-time, grayscale, and color Doppler sonography of the deep veins of the left lower extremity was performed from the inguinal crease to the calf. Compression and augmentation were utilized. FINDINGS: There is no sonographic evidence of deep venous thrombosis identified in the left lower extremity. The common femoral, superficial femoral, and popliteal veins are patent and normally compressible. The greater saphenous vein and the profunda femoris vein at the junction with the common femoral vein are clear. The visualized calf veins are patent. IMPRESSION: There is no sonographic evidence of deep venous thrombosis identified in the left lower extremity. Electronically signed by: Cornelio Gray M.D. 07/06/2016 3:07 PM Dictated Date/Time: 07/06/2016 3:06 PM
--- NOTE | 2016-07-06 16:25 | DIAGNOSTIC IMAGING REPORT ---
ABDOMEN AND PELVIS CT WITH IV AND ORAL CONTRAST CT DOSE: 470.35 mGy.cm HISTORY: Left lower quadrant abdominal pain. Leg swelling. TECHNIQUE: Multiaxial CT images of the abdomen and pelvis were performed following the use of intravenous and oral contrast. COMPARISON STUDY: Chest CTA 07/01/2016. FINDINGS: Bilateral pulmonary emboli are again noted. Groundglass densities within the base the right lower lobe consistent with pulmonary infarcts. No pneumoperitoneum. No pneumatosis. Posterior fusion hardware within the lumbar spine. The liver, gallbladder, pancreas, spleen, adrenal glands, and kidneys are unremarkable. No retroperitoneal lymphadenopathy. Normal caliber abdominal aorta. The IVC is patent. Nonocclusive thrombus within the left common iliac vein and extending into the left external iliac vein. There appears be a small focus of thrombus within the distal right common iliac vein. Mild bladder wall thickening may be due to chronic outlet obstruction. The prostate gland is mildly enlarged. Mild inflammatory change surrounding the partially thrombosed left external iliac vein. No bowel wall thickening or obstruction. IMPRESSION: 1. 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 2. Redemonstration of the bilateral pulmonary emboli. There is an associated right lower lobe pulmonary infarct. Electronically signed by: Jason Melendez M.D. 07/06/2016 4:24 PM Dictated Date/Time: 07/06/2016 4:12 PM
[2016-07-06] MEDS ORDERED: VNTHFA/IN INH (18:01)
[2016-07-06] MEDS ORDERED: DOXY100C2 PO (18:01)
[2016-07-06 18:04] VITALS: BP 146/75; PULSE 78; O2SAT 99
--- NOTE | 2016-07-06 20:58 | EMERGENCY ROOM VISIT NOTE ---
History Report prepared by Tom: Daisha Omer Under the Supervision of: Dr. Romel Strickland M.D. First contact with patient: 12:15 Chief Complaint: LEG PAIN,LEG INJURY Stated Complaint: LEG PAIN History of Present Illness The patient is a 55 year old male who presents to the Emergency Room with complaints of worsening left leg swelling over the past several days. The patient was initially seen in the emergency room for shortness of breath and left leg pain and swelling on July 01 and and was hospitalized after a chest CT revealed PEs. AN ultrasound of his left lower extremity was unrevealing. The patient was discharged on July 02 on Eliquis. Since then, the patient has had increasing swelling to his left leg. This morning, he noticed that his left foot was also swollen. The patient states that the origin of the blood clot was not determined while he was in the hospital. Yesterday, the patient had a follow up with his PCP. The patient had left lower quadrant tenderness on the exam and Dr. Love wanted to schedule him for a CT scan, but the patient's insurance would not cover the scan as an outpatient, so he recommended that the patient come to the ED to be evaluated for his leg swelling as well as his abdominal pain. Pt denies LOC, headache, fevers, chills , diaphoresis, visual changes, neck pain, chest pain, breathing difficulties, nausea, vomiting, back pain, melena, hematochezia, urinary symptoms, numbness, weakness, lymphadenopathy, rash, or other complaints. Source of History: patient Onset: several days ago Position: other (left leg) Quality: other (swelling) Timing: worsening Associated Symptoms: + abdominal pain Review of Systems See HPI for pertinent positives and negatives. A total of ten systems were reviewed and were otherwise negative. Past Medical & Surgical Medical Problems: (1) Dyslipidemia (2) History of Lyme disease (3) Spinal stenosis of lumbar region (4) Tobacco abuse Surgical Problems: (1) H/O sinus surgery (2) H/O spinal fusion Family History Breast cancer MOTHER COPD (chronic obstructive pulmonary disease) FATHER Diabetes mellitus MOTHER GRANDMOTHER Pulmonary embolism FATHER Social History Smoking Status: Current Every Day Smoker Marital Status: Occupation Status: employed Current/Historical Medications Scheduled Apixaban (Eliquis), 10 MG PO BID Doxycycline Hyclate (Vibramycin), 100 MG PO BID Gabapentin (Neurontin), 300 MG PO HS Scheduled PRN Albuterol Hfa (Ventolin Hfa), 2 PUFFS INH Q4H PRN for Shortness of Breath Allergies Coded Allergies: Penicillins (Verified Allergy, Unknown, NAUSEA/VOMITING, 08/07/13) Physical Exam Vital Signs Date Time Temp Pulse Resp B/P Pulse Ox O2 Delivery O2 Flow Rate FiO2 07/06/16 18:04 78 20 146/75 99 Room Air 07/06/16 16:19 78 16 133/72 98 Room Air 07/06/16 14:01 78 16 132/76 99 Room Air 07/06/16 11:46 37.0 101 18 163/81 98 Room Air Physical Exam GENERAL: Awake, alert, well-appearing, in no distress HENT: Normocephalic, atraumatic. Oropharynx unremarkable. EYES: Normal conjunctiva. Sclera non-icteric. NECK: Supple. No nuchal rigidity. FROM. No JVD. RESPIRATORY: Clear to auscultation. CARDIAC: Regular rate, normal rhythm. Extremities warm and well perfused. Pulses equal. ABDOMEN: Soft, non-distended. Some left lower quadrant abdominal tenderness to palpation. No rebound or guarding. No masses. RECTAL: Deferred. MUSCULOSKELETAL: Chest examination reveals no tenderness. The back is symmetrical on inspection without obvious abnormality. There is no CVA tenderness to palpation. No joint edema. LOWER EXTREMITIES: Left lower leg is larger than right. Left lower extremity has 1-2+ pitting edema. Negative William's sign. No discoloration. NEURO: Normal sensorium. No sensory or motor deficits noted. SKIN: No rash or jaundice noted. Medical Decision & Procedures ER Provider Diagnostic Interpretation: Radiology results as stated below per my review and radiologist interpretation. ULTRASOUND LEFT LOWER EXTREMITY VENOUS CLINICAL HISTORY: Left leg pain. COMPARISON STUDY: Left lower extremity venous ultrasound dated 07/01/2016. TECHNIQUE: Real-time, grayscale, and color Doppler sonography of the deep veins of the left lower extremity was performed from the inguinal crease to the calf. Compression and augmentation were utilized. FINDINGS: There is no sonographic evidence of deep venous thrombosis identified in the left lower extremity. The common femoral, superficial femoral, and popliteal veins are patent and normally compressible. The greater saphenous vein and the profunda femoris vein at the junction with the common femoral vein are clear. The visualized calf veins are patent. IMPRESSION: There is no sonographic evidence of deep venous thrombosis identified in the left lower extremity. Electronically signed by: Cornelio Gray M.D. 07/06/2016 3:07 PM Dictated Date/Time: 07/06/2016 3:06 PM ABDOMEN AND PELVIS CT WITH IV AND ORAL CONTRAST CT DOSE: 470.35 mGy.cm HISTORY: Left lower quadrant abdominal pain. Leg swelling. TECHNIQUE: Multiaxial CT images of the abdomen and pelvis were performed following the use of intravenous and oral contrast. COMPARISON STUDY: Chest CTA 07/01/2016. FINDINGS: Bilateral pulmonary emboli are again noted. Groundglass densities within the base the right lower lobe consistent with pulmonary infarcts. No pneumoperitoneum. No pneumatosis. Posterior fusion hardware within the lumbar spine. The liver, gallbladder, pancreas, spleen, adrenal glands, and kidneys are unremarkable. No retroperitoneal lymphadenopathy. Normal caliber abdominal aorta. The IVC is patent. Nonocclusive thrombus within the left common iliac vein and extending into the left external iliac vein. There appears be a small focus of thrombus within the distal right common iliac vein. Mild bladder wall thickening may be due to chronic outlet obstruction. The prostate gland is mildly enlarged. Mild inflammatory change surrounding the partially thrombosed left external iliac vein. No bowel wall thickening or obstruction. IMPRESSION: 1. 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 2. Redemonstration of the bilateral pulmonary emboli. There is an associated right lower lobe pulmonary infarct. Electronically signed by: Jason Melendez M.D. 07/06/2016 4:24 PM Dictated Date/Time: 07/06/2016 4:12 PM Laboratory Results 07/06/16 12:30 Red Blood Count 4.82, Mean Corpuscular Volume 92.3, Mean Corpuscular Hemoglobin 33.6, Mean Corpuscular Hemoglobin Concent 36.4, Mean Platelet Volume 10.0, Neutrophils (%) (Auto) 65.5, Lymphocytes (%) (Auto) 22.3, Monocytes (%) (Auto) 8.5, Eosinophils (%) (Auto) 2.9, Basophils (%) (Auto) 0.3, Neutrophils # (Auto) 7.90, Lymphocytes # (Auto) 2.69, Monocytes # (Auto) 1.02, Eosinophils # (Auto) 0.35, Basophils # (Auto) 0.04 07/06/16 12:30 Test 07/06/16 12:30 07/06/16 13:05 White Blood Count 12.06 K/uL (4.8-10.8) Red Blood Count 4.82 M/uL (4.7-6.1) Hemoglobin 16.2 g/dL (14.0-18.0) Hematocrit 44.5 % (42-52) Mean Corpuscular Volume 92.3 fL (80-100) Mean Corpuscular Hemoglobin 33.6 pg (25-34) Mean Corpuscular Hemoglobin Concent 36.4 g/dl (32-36) Platelet Count 148 K/uL (130-400) Mean Platelet Volume 10.0 fL (7.4-10.4) Neutrophils (%) (Auto) 65.5 % Lymphocytes (%) (Auto) 22.3 % Monocytes (%) (Auto) 8.5 % Eosinophils (%) (Auto) 2.9 % Basophils (%) (Auto) 0.3 % Neutrophils # (Auto) 7.90 K/uL (1.4-6.5) Lymphocytes # (Auto) 2.69 K/uL (1.2-3.4) Monocytes # (Auto) 1.02 K/uL (0.11-0.59) Eosinophils # (Auto) 0.35 K/uL (0-0.5) Basophils # (Auto) 0.04 K/uL (0-0.2) RDW Standard Deviation 41.4 fL (36.4-46.3) RDW Coefficient of Variation 12.2 % (11.5-14.5) Immature Granulocyte % (Auto) 0.5 % Immature Granulocyte # (Auto) 0.06 K/uL (0.00-0.02) Prothrombin Time 11.1 SECONDS (9.0-12.0) Prothromb Time International Ratio 1.0 (0.9-1.1) Activated Partial Thromboplast Time 29.6 SECONDS (21.0-31.0) Partial Thromboplastin Ratio 1.1 Anion Gap 8.0 mmol/L (3-11) Est Creatinine Clear Calc Drug Dose 91.4 ml/min Estimated GFR () 88.4 Estimated GFR (Non- 76.2 BUN/Creatinine Ratio 12.0 (10-20) Calcium Level 9.0 mg/dl (8.5-10.1) Total Bilirubin 0.4 mg/dl (0.2-1) Direct Bilirubin 0.1 mg/dl (0-0.2) Aspartate Amino Transf (AST/SGOT) 15 U/L (15-37) Alanine Aminotransferase (ALT/SGPT) 34 U/L (12-78) Alkaline Phosphatase 115 U/L (45-117) Total Protein 8.0 gm/dl (6.4-8.2) Albumin 3.6 gm/dl (3.4-5.0) Lipase 257 U/L (73-393) Urine Color YELLOW Urine Appearance CLEAR (CLEAR) Urine pH 5.5 (4.5-7.5) Urine Specific [place] 1.006 (1.000-1.030) Urine Protein NEG (NEG) Urine Glucose (UA) NEG (NEG) Urine Ketones NEG (NEG) Urine Occult Blood TRACE (NEG) Urine Nitrite NEG (NEG) Urine Bilirubin NEG (NEG) Urine Urobilinogen NEG (NEG) Urine Leukocyte Esterase NEG (NEG) Urine WBC (Auto) 0 /hpf (0-5) Urine RBC (Auto) 0-4 /hpf (0-4) Urine Hyaline Casts (Auto) 0 /lpf (0-5) Urine Epithelial Cells (Auto) 0-5 /lpf (0-5) Urine Bacteria (Auto) NEG (NEG) Laboratory results reviewed by [facility] ED Course 1306: I spoke with Dr. Gray - Radiology who recommended both IV and oral contrast for the CT scan. 1308: The patient was evaluated in room B2. A complete history and physical exam was performed. 1728: I reassessed the patient and updated him on results so far. 1740: I discussed the case with Dr. Ferguson - [facility] Hospitalist. We agreed with a treatment plan. 1800: I reevaluated the patient. Discussed results and discharge instructions: He verbalized understanding and agreement. He will continue his medications and follow up with hematology. The patient is ready for discharge. Medical Decision Triage Nursing notes reviewed. The patient's presentation and history were concerning for leg swelling. Etiologies such as DVT, infection, muscular, lymphedema, idiopathic, CHF, as well as others were entertained. The patient was evaluated. He had swelling in the leg which she noted worsened since hospitalization. His primary was concerned about a pelvic issue causing his swelling and recent PE. He had a slight leukocytosis on CBC. Chemistry panel was unremarkable. Urinalysis, LFTs and lipase were unremarkable. The patient underwent ultrasound imaging which was negative. The patient had a full prep CT scan and this revealed pelvic thrombosis. Given the distribution of the thrombosis is likely is the cause of his leg swelling. He also likely has PE from this source. The patient had pre-demonstration of his pulmonary emboli. [facility] and it was felt that he would stay on his current regimen and can follow-up as an outpatient. The patient will follow-up with hematology oncology, Dr. Gardner. If he has any issues due to his insurance the patient was also provided information to follow up with Dr. Gray. The patient felt comfortable. He was given a thigh-high teds stocking to help with the edema. I gave my usual and customary discussion regarding this issue. By the evaluation outlined above other emergent etiologies such as those listed in the differential, as well as others, were deemed relatively unlikely. The patient was informed about the findings as listed above. All questions were answered and he was pleased with the treatment. Return instructions were outlined and the patient was discharged in stable condition. The patient was referred to hematology and his PCP for follow-up for a recheck of the current condition. The chart was completed utilizing [employer] Speech voice recognition software. Grammatical errors, random word insertions, pronoun errors, and incomplete sentences are an occasional consequence of this system due to software limitations, ambient noise, and hardware issues. Any formal questions or concerns about the content, text, or information contained within the body of this dictation should be directly addressed to the physician for clarification. Consults Time Called: 1300 Consulting Physician: Dr. Gray - Radiology Returned Call: [address] Gray - Radiology who recommended both IV and oral contrast for the CT scan. Additional Consults: Time Called: 1735 [facility] Call: 1740 Additional Comments: I discussed the case with him. We agreed with a treatment plan. Impression Primary Impression: Leg edema, left Additional Impression: Deep vein thrombosis (DVT) of iliac vein of left lower extremity Scribe Attestation The scribe's documentation has been prepared under my direction and personally reviewed by me in its entirety. I confirm that the note above accurately reflects all work, treatment, procedures, and medical decision making performed by me. Departure Information Dispostion Home / Self-Care Referrals Renan Love M.D. (PCP) Rodrigo Gray D.O. Patel, Nilesh A., M.D. Forms HOME CARE DOCUMENTATION FORM, IMPORTANT VISIT INFORMATION Patient Instructions My [facility] Additional Instructions Continue current medication. Use the support stocking and elevate the leg as much as possible to minimize swelling. Follow-up with Dr. Gardner as discussed. If there are insurance issues with following up with the [facility] hematology group then follow-up with Dr. Gray. Both numbers are listed below. Return to the ER for worsening swelling, bleeding issues, chest pain, difficulty breathing, fevers, vomiting, worsening of your condition, or as needed. Problem Qualifiers
[2016-08-14] MEDS ORDERED: APIX1TAB3 PO (09:29)
== END 2016-07-06 18:21 | disposition home or self-care (01) ==
LOC: C.EDB 11:43
DX: I82.422 Acute embolism and thrombosis of left iliac vein (principal); F17.200 Nicotine dependence, unspecified, uncomplicated; Z98.1 Arthrodesis status; Z98.890 Other specified postprocedural states; Z80.3 Family history of malignant neoplasm of breast; Z83.3 Family history of diabetes mellitus; Z82.49 Family history of ischemic heart disease and other diseases of the circulatory system; Z83.6 Family history of other diseases of the respiratory system

== ENCOUNTER → 2016-08-06 | Outpatient (CLI) | payer OTHER ==
[~2016-08-06] MED LIST changes: +DOCU-94 PO; +DOXY100C2 PO; +OXYC1TAB3 PO; -PRED20TA PO; +SENN1TAB77 PO; +VNTHFA/IN INH
== END | disposition home or self-care (01) ==
LOC: C.LABBFT 13:00
PROVIDERS: ATTEND Internal Medicine
DX: Z12.5 Encounter for screening for malignant neoplasm of prostate (principal)

== ENCOUNTER 2016-08-13 05:51 | Inpatient (IN) | payer OTHER ==
[2016-08-13] VITALS (24 sets, daily range): BP systolic 111–143; BP diastolic 71–86; PULSE 64–98; TEMP 36.5–37; O2SAT 92–99; Ht 177.8 cm; Wt 99.0 kg
[~2016-08-13] VITALS: Ht 177.8 cm; Wt 99.0 kg
[~2016-08-13 05:51] MED LIST changes: -DOCU-94 PO; -OXYC1TAB3 PO; -SENN1TAB77 PO
[2016-08-13] MEDS ORDERED: CLINDAMYCIN 600 MG/54 ML D5W IV SCH (06:00)
[2016-08-13 06:29] LABS: PARTIAL THROMBOPLASTIN RATIO 1.1; PROTHROMBIN TIME (PATIENT) 10.4 SECONDS (9.0-12.0)
[2016-08-13 06:38] LABS: BLOOD UREA NITROGEN 13 mg/dl (7-18)
[2016-08-13] MEDS: SODIUM CHLORIDE 0.9% 1000ML IV SCH ×2 (06:40→16:24)
[2016-08-13] MEDS ORDERED: FENTANYL CITRATE INJ 50 MCG/1 ML 2 ML VIAL ONE ×2 (07:38→08:55)
[2016-08-13] MEDS ORDERED: MIDAZOLAM HCL 1 MG/ML 2ML VIAL ONE ×2 (07:38→08:55)
[2016-08-13] MEDS ORDERED: HEPARIN SOD (PORCINE) 1000 UNIT/ML 10 ML VIAL ONE (07:40)
--- NOTE | 2016-08-13 07:41 | History and Physical ---
History & Physical Date of Service Aug 13, 2016. History & Physical CC: Bilateral iliac vein thrombosis HPI: Mr. Florez is a 55-year-old gentleman who in the end of June developed pulmonary emboli and swelling and he was found to have a deep venous thrombosis of the left lower extremity as well as the iliac veins. CT scan done July 06 showed bilateral common iliac vein thrombosis and the left external iliac thrombosis. Since then, he has had significant swelling in the left lower extremity and mild swelling the right lower extremity. It is interfering with his daily activities. It gets worse as the day goes on. He is on Eliquis at this time for his DVT. He has no previous history of deep venous thrombosis. ALLERGIES: PENICILLIN. MEDICATIONS: Eliquis and gabapentin. PAST MEDICAL HISTORY: Positive for tuberculosis and his deep venous thrombosis. PAST SURGICAL HISTORY: Appendectomy and spinal fusion. FAMILY HISTORY: Positive for heart disease, hypertension, diabetes and cancer. SOCIAL HISTORY: He smokes 1 pack a day for the last 24 years. He does not drink. REVIEW OF SYSTEMS: A 10-point review of systems was asked. The only positive findings are occasional chest pain and shortness of breath. The rest of his positive findings are related to his history of present illness. PHYSICAL EXAMINATION: The patient is awake, oriented x3, is in no apparent distress. His neck is soft with no carotid bruits. Heart had regular rate and rhythm. Lungs were clear. Abdominal exam is benign. No aortic pulsations are noted. Vascular exam: His radials, carotids, supratemporal arteries are +2 bilaterally. Femorals are +2. He is difficult to feel pedals on the left due to the edema. Right lower extremity pedals are +2. Lower extremity showed 1+ edema in the right lower extremity, and 3+ edema in the left lower extremity. No ulcerations of the lower extremities are noted. IMPRESSION: 1. Bilateral common iliac vein thrombosis. 2. Left external iliac vein thrombosis. PLAN AND RECOMMENDATIONS: At this point we recommended that we attempt a thrombolytic infusion. He is reaching the flor period after acute deep venous thrombosis; however, with the amount of swelling, I think he would benefit for an attempt. We will place a temporary filter in the inferior vena cava prior to going ahead with the thrombolytics being that there is a large clot burden in the iliac veins. Hopefully, we could at least partially opened up the iliac veins or we could balloon and stent these vessels to help the outflow of the left lower extremity. I have discussed the risks options and benefits of the procedure with the patient. The patient understands the risks options and benefits and agrees to the procedure.
--- NOTE | 2016-08-13 07:42 | Procedure Note ---
Pre-Mod Sedation Assessment General Date of Moderate Sedation: Aug 13, 2016. Vital Signs: Vital Signs Past 12 Hours Date Time Temp Pulse Resp B/P Pulse Ox O2 Delivery O2 Flow Rate FiO2 08/13/16 06:26 36.9 88 20 129/74 99 Room Air Pre-Sedation Airway Assessment Oral Cavity: Dentures Smoking Status: Current Every Day Smoker Mallampati Classification: Class I ASA Classification: Class I Notes The planned sedation has been discussed with the patient and consent obtained. I have identified the patient, determined the appropriateness of sedation and have assessed the patient immediately prior to the procedure. All medicine(s) and interventions are by my order.
[2016-08-13] MEDS ORDERED: HEPARIN 25000 UNIT/500 ML D5W ONE (08:06)
[2016-08-13] MEDS ORDERED: MIDAZOLAM HCL 1 MG/ML 2ML VIAL XX ONE (08:30)
[2016-08-13] MEDS ORDERED: MIDAZOLAM HCL 1 MG/ML 2ML VIAL IV ONE (08:52)
[2016-08-13] MEDS ORDERED: FENTANYL CITRATE INJ 50 MCG/1 ML 2 ML VIAL IV ONE ×2 (08:53→09:13)
[2016-08-13] MEDS ORDERED: NURSING VERBAL MED ORDER ONE (09:31)
[2016-08-13] MEDS ORDERED: MoRPHine SULFATE 4 MG/ML 1 ML CARP\\VIAL IV PRN (09:45)
[2016-08-13] MEDS ORDERED: ALBUTEROL HFA 8 GM INHALER INH PRN (09:45)
[2016-08-13] MEDS ORDERED: HEPARIN 25,000 UNIT/500ML D5W 500 ML IV SCH ×2 (09:45→12:15)
[2016-08-13] MEDS ORDERED: ONDANSETRON INJ 2 MG/ML 2 ML VIAL IV PRN (09:45)
[2016-08-13] MEDS ORDERED: LIDOCAINE HCL 1% 20 ML VIAL SQ ONE (09:47)
[2016-08-13] MEDS ORDERED: IODIXANOL (VISIPAQUE) 270 MG/ML 150ML XX ONE (09:47)
--- NOTE | 2016-08-13 09:51 | Procedure Note ---
Post-Moderate Sedation Plan General Date of Moderate Sedation Aug 13, 2016. Vital Signs: Vital Signs Past 12 Hours Date Time Temp Pulse Resp B/P Pulse Ox O2 Delivery O2 Flow Rate FiO2 08/13/16 07:48 36.9 88 20 129/74 99 Room Air 08/13/16 06:26 36.9 88 20 129/74 99 Room Air Review - Discharge Plan Post Moderate Sedation Plan: On clinical assessment, the patient appears to have tolerated the conscious sedation without complications. Patient is recovering as anticipated. Patient will continue to be monitored by nursing and may be discharged when conscious sedation discharge criteria are met.
--- NOTE | 2016-08-13 09:54 | [facility] Post Operative Brief Note ---
Immediate Operative Summary Operative Date Aug 13, 2016. Pre-Operative Diagnosis Bilateral Iliac Vein Thrombosis Post-Operative Diagnosis Same Procedure(s) Performed Insertion of Vena Cava Filter, Right Jugular Approach, Bilateral Iliac Vein Venogram Venacavagram, Insertion of Infusion Catheter for Thrombolysis, Thrombolytic Therapy Moderate Sedation from 0830- 0942. Surgeon Dr. Esparza [employer] Associate Surgeon(s) Dr. Kim Estimated Blood Loss 10 Findings left iliac vein thrombosis Specimens None Anesthesia Local with moderate conscious sedation Complication(s) None Disposition Surgical ICU
[2016-08-13 11:14] LABS: BASO % 0.5 %; BASO ABS # 0.04 K/uL (0-0.2); EOS % 1.6 %; HEMATOCRIT 40.9 % (42-52); IG% 0.2 %; LYMPH % 25.5 %; LYMPH ABS # 2.07 K/uL (1.2-3.4); MEAN CELL VOLUME 91.3 fL (80-100); MEAN PLATELET VOLUME 9.9 fL (7.4-10.4); NEUT % 64.2 %; PLATELET COUNT 126 K/uL (130-400); RED BLOOD COUNT 4.48 M/uL (4.7-6.1); WHITE BLOOD COUNT 8.11 K/uL (4.8-10.8)
[2016-08-13] MEDS ORDERED: SODIUM CHLORIDE 0.9% 1000ML 1,000 ML IV SCH ×2 (11:30→12:00)
[2016-08-13 11:32] LABS: PARTIAL THROMBOPLASTIN RATIO 1.1
[2016-08-13] MEDS ORDERED: MoRPHine SULFATE 2 MG/ML CARP IV PRN (11:45)
[2016-08-13] MEDS ORDERED: ALTEPLASE, RECOMBINANT 24 MG in SODIUM CHLORIDE 0.9% 250ML 216 ML IV SCH ×2 (12:00)
[2016-08-13 12:11] LABS: COMPLETE YES; MEAN CORPUSCULAR HGB CONC 36.2 g/dl (32-36)
--- NOTE | 2016-08-13 14:30 | Critical Care Consultation ---
Critical Care Consultation Date of Consultation: Aug 13, 2016. Attending Physician: Dorian Esparza M.D. Reason for Consultation: consultation TPA History of Present Illness This is a 55 yo m that is presenting to us s/p IVC filter placement and tpa administration. The patient was originally diagnosed with multiple pulmonary emboli in Jun 2016 where he was started on Eliquis. Upon assessment it was noted he had bilat DVT as well as thrombi in bilat common iliac veins and left external iliac vein. Along with this he has increasing swelling of bilat LE L>R and significant pain with ambulation because of this. Since the thrombi were affecting his ADLs it was decided that the patient would be treated more aggresively with thrombolytics. The plan was to also place a temporary IVC filter during the thrombolytic therapy. He does not have any history of DVT. He has no history of malignancy. The surgery was completed 08/13/2016 and patient tolerated it well. Pain is well under control and denies any chest pain, SOB, hematuria or presyncope. Past Medical/Surgical History Spinal fusion bilateral PE Family History Breast cancer MOTHER COPD (chronic obstructive pulmonary disease) FATHER Diabetes mellitus MOTHER GRANDMOTHER Pulmonary embolism FATHER Social History Smoking Status: Current Every Day Smoker (1 PPD x 20 years) Smokeless Tobacco Use: No Alcohol Use: none Drug Use: none Marital Status: Occupation Status: employed Allergies Coded Allergies: Penicillins (Verified Adverse Reaction, Mild, NAUSEA/VOMITING, 08/13/16) Home Medications Scheduled Apixaban (Eliquis), 10 MG PO BID Apixaban (Eliquis), 5 MG PO BID Gabapentin (Neurontin), 300 MG PO HS Scheduled PRN Albuterol Hfa (Ventolin Hfa), 2 PUFFS INH Q4H PRN for Shortness of Breath Current Inpatient Medications Current Inpatient Medications Medications (Trade) Dose Ordered Sig/Narciso Route Start Time Stop Time Status Last Admin Dose Admin Sodium Chloride 1,000 ml @ 100 mls/hr Q10H IV 08/13/16 06:00 08/13/16 18:00 08/13/16 06:40 100 MLS/HR Clindamycin Phosphate (Cleocin 600mg/ 54ml D5W) 54 ml @ 100 mls/hr TODAY@0600 IV 08/13/16 06:00 08/13/16 18:00 08/13/16 08:08 100 MLS/HR Morphine Sulfate (MoRPHine SULFATE INJ) 4 mg Q2H PRN IV 08/13/16 09:45 08/27/16 09:44 Ondansetron HCl 4 mg 4 mg Q6H PRN IV 08/13/16 09:45 09/12/16 09:44 Alteplase, Recombinant 24 mg/ Sodium Chloride 240 ml @ 20 mls/hr Q12H IV 08/13/16 12:00 08/13/16 23:59 08/13/16 11:50 20 MLS/HR Alteplase, Recombinant/ Sodium Chloride (Activase Cathflo/Nss 250ml) 240 ml @ 20 mls/hr Q12H IV 08/14/16 00:00 08/14/16 11:59 Albuterol 2 puffs 2 puffs Q4H PRN INH 08/13/16 09:45 09/12/16 09:44 Sodium Chloride 1,000 ml @ 50 mls/hr Q20H IV 08/13/16 12:00 08/13/16 23:59 Sodium Chloride (Nss 1000ml) 1,000 ml @ 20 mls/hr Q24H IV 08/13/16 11:30 09/12/16 11:29 08/13/16 11:51 20 MLS/HR Morphine Sulfate 2 mg 2 mg Q2H PRN IV 08/13/16 11:45 08/27/16 11:44 Heparin Sodium/ Dextrose (Heparin 25,000 Unit/500ml D5W) 500 ml @ 16 mls/hr Q24H IV 08/13/16 12:15 09/12/16 12:14 Review of Systems Constitutional: No fever Eyes: No worsening of vision ENT: No hearing loss Respiratory: No cough, No dyspnea at rest, No dyspnea on exertion, No shortness of breath, No sputum, No wheezing Cardiovascular: No chest pain Abdomen: No nausea, No pain, No vomiting Musculoskeletal: + swelling (L>R, BL) Neurologic: + weakness, No balance problems, No numbness/tingling Endocrine: No fatigue Physical Exam Date Time Temp Pulse Resp B/P Pulse Ox O2 Delivery O2 Flow Rate FiO2 08/13/16 13:00 77 16 115/71 95 Room Air 08/13/16 12:30 71 14 112/71 95 Room Air 08/13/16 12:16 71 14 116/80 97 Room Air 08/13/16 12:01 98 17 132/83 95 Room Air 08/13/16 12:00 Room Air 08/13/16 11:46 74 14 126/76 96 Room Air 08/13/16 11:31 36.5 76 16 111/84 97 Room Air 08/13/16 07:48 36.9 88 20 129/74 99 Room Air 08/13/16 06:26 36.9 88 20 129/74 99 Room Air General Appearance: well-appearing, no apparent distress Head: normocephalic, atraumatic Eyes: PERRLA, EOMI, sclerae normal, conjunctivae normal ENT: other (inspoection WNL) Neck: normal range of motion, trachea midline Respiratory: breath sounds normal, clear to auscultation, clear to percussion, no respiratory distress Cardiovasular: regular rate/rhythm, normal S1S2, no murmur Abdomen: non tender, normal bowel sounds Back: normal inspection Upper Extremities: no edema, normal ROM Lower Extremities: normal ROM, edema (L>R, pitting edema, minimal redness of the left LE) Pulses: dorsalis pedis (R) (1+), dorsalis pedis (L) (1+) Neuro: alert, oriented x 3 Psychiatric: normal affect Laboratory Results Last 24 Hours Test 08/13/16 06:12 08/13/16 11:08 Prothrombin Time 10.4 SECONDS Prothromb Time International Ratio 1.0 Activated Partial Thromboplast Time 27.6 SECONDS 29.0 SECONDS Partial Thromboplastin Ratio 1.1 1.1 Blood Urea Nitrogen 13 mg/dl Creatinine 1.10 mg/dl Estimated GFR () 88.4 Estimated GFR (Non- 76.2 White Blood Count 8.11 K/uL Red Blood Count 4.48 M/uL Hemoglobin 14.8 g/dL Hematocrit 40.9 % Mean Corpuscular Volume 91.3 fL Mean Corpuscular Hemoglobin 33.0 pg Mean Corpuscular Hemoglobin Concent 36.2 g/dl Platelet Count 126 K/uL Mean Platelet Volume 9.9 fL Neutrophils (%) (Auto) 64.2 % Lymphocytes (%) (Auto) 25.5 % Monocytes (%) (Auto) 8.0 % Eosinophils (%) (Auto) 1.6 % Basophils (%) (Auto) 0.5 % Neutrophils # (Auto) 5.20 K/uL Lymphocytes # (Auto) 2.07 K/uL Monocytes # (Auto) 0.65 K/uL Eosinophils # (Auto) 0.13 K/uL Basophils # (Auto) 0.04 K/uL RDW Standard Deviation 42.5 fL RDW Coefficient of Variation 12.7 % Immature Granulocyte % (Auto) 0.2 % Immature Granulocyte # (Auto) 0.02 K/uL Fibrinogen 285 mg/dl Assessment & Plan 1. s/p IVC filter placement and thrombolytic therapy 2. bilateral PE 3. Bilat DVT and extension to common illiacs 4. s/p spinal fusion causing peripheral neuropathy NVS - alert and oriented - monitor for signs of delirium - morphine for pain control as per primary team CVS - monitor on tele RVS - O2 per protocol RENAL - monitor I&O GI - Advance as per primary team FEN - follow BMP HEME - Post op care as per primary team Resident Physician Supervision Note: Dr. Castrejon was resident physician during care of patient. I separately evaluated patient and did history and exam. I discussed the case with the resident and generally agree with the findings and plan. Placement of IVC filter, patient has 2 femoral lines, no complaint during my evaluation. Documented By: Nadir Armando, DO Additional Copies To Pedrito Fernandez M.D.
[2016-08-13 16:00] LABS: BASO % 0.3 %; BASO ABS # 0.03 K/uL (0-0.2); COMPLETE YES; EOS % 0.9 %; HEMATOCRIT 42.7 % (42-52); IG% 0.2 %; LYMPH % 22.9 %; LYMPH ABS # 2.05 K/uL (1.2-3.4); MEAN CELL VOLUME 92.6 fL (80-100); MEAN CORPUSCULAR HEMOGLOBIN 33.2 pg (25-34); MEAN CORPUSCULAR HGB CONC 35.8 g/dl (32-36); MEAN PLATELET VOLUME 10.1 fL (7.4-10.4); MONO % 9.3 %; NEUT % 66.4 %; PLATELET COUNT 122 K/uL (130-400); RED BLOOD COUNT 4.61 M/uL (4.7-6.1); WHITE BLOOD COUNT 8.94 K/uL (4.8-10.8)
[2016-08-13 21:55] LABS: BASO % 0.2 %; BASO ABS # 0.02 K/uL (0-0.2); COMPLETE YES; HEMATOCRIT 43.3 % (42-52); IG% 0.1 %; LYMPH % 20.7 %; LYMPH ABS # 1.85 K/uL (1.2-3.4); MEAN CELL VOLUME 92.5 fL (80-100); MEAN CORPUSCULAR HEMOGLOBIN 32.5 pg (25-34); MEAN CORPUSCULAR HGB CONC 35.1 g/dl (32-36); MEAN PLATELET VOLUME 10.1 fL (7.4-10.4); MONO % 7.6 %; NEUT % 70.4 %; PLATELET COUNT 128 K/uL (130-400); RED BLOOD COUNT 4.68 M/uL (4.7-6.1); WHITE BLOOD COUNT 8.93 K/uL (4.8-10.8)
[2016-08-13 22:31] LABS: PARTIAL THROMBOPLASTIN RATIO 1.1
[2016-08-14] VITALS (16 sets, daily range): BP systolic 109–137; BP diastolic 66–86; PULSE 62–93; TEMP 36.8–37; O2SAT 92–96
[2016-08-14] MEDS ORDERED: ALTEPLASE, RECOMBINANT 12 MG in SODIUM CHLORIDE 0.9% 250ML 228 ML IV SCH ×2
[2016-08-14 03:56] LABS: BASO % 0.3 %; BASO ABS # 0.03 K/uL (0-0.2); COMPLETE YES; HEMATOCRIT 39.7 % (42-52); IG% 0.8 %; LYMPH % 20.7 %; LYMPH ABS # 1.81 K/uL (1.2-3.4); MEAN CELL VOLUME 90.6 fL (80-100); MEAN CORPUSCULAR HEMOGLOBIN 32.2 pg (25-34); MEAN CORPUSCULAR HGB CONC 35.5 g/dl (32-36); MEAN PLATELET VOLUME 10.2 fL (7.4-10.4); MONO % 7.4 %; NEUT % 69.8 %; PLATELET COUNT 113 K/uL (130-400); RED BLOOD COUNT 4.38 M/uL (4.7-6.1); WHITE BLOOD COUNT 8.75 K/uL (4.8-10.8)
[2016-08-14] MEDS ORDERED: CLINDAMYCIN 600 MG/54 ML D5W IV ONE (06:00)
[2016-08-14] MEDS ORDERED: FENTANYL CITRATE INJ 50 MCG/1 ML 2 ML VIAL ONE (07:37)
[2016-08-14] MEDS ORDERED: MIDAZOLAM HCL 1 MG/ML 2ML VIAL ONE (07:38)
[2016-08-14] MEDS ORDERED: HEPARIN SOD (PORCINE) 5000 UNIT/ML 1 ML VIAL ONE (07:38)
[2016-08-14] MEDS ORDERED: CLINDAMYCIN IV 600 MG in DEXTROSE 5% ADD-VANTAGE 50ML 50 ML IV SCH (08:00)
--- NOTE | 2016-08-14 08:14 | Progress Note ---
Progress Note Date of Service Aug 14, 2016. Progress Note Patient for recheck of TPA and possible intervention. I have discussed the risks options and benefits of the procedure with the patient. The patient understands the risks options and benefits and agrees to the procedure. I have examined the patient, reviewed the History & Physical and in the interval since the performance of the History & Physical I have noted the following changes of clinical significance: No changes noted
--- NOTE | 2016-08-14 08:15 | Procedure Note ---
Pre-Mod Sedation Assessment General Date of Moderate Sedation: Aug 14, 2016. Vital Signs: Vital Signs Past 12 Hours Date Time Temp Pulse Resp B/P Pulse Ox O2 Delivery O2 Flow Rate FiO2 08/14/16 07:00 37.0 93 14 127/79 96 Room Air 08/14/16 06:00 71 16 124/66 93 Room Air 08/14/16 05:00 68 14 128/72 93 Room Air 08/14/16 04:00 36.8 73 19 125/73 93 Room Air 08/14/16 04:00 Room Air 08/14/16 03:00 77 15 123/76 93 Room Air 08/14/16 02:00 77 18 109/73 92 Room Air 08/14/16 01:00 80 16 127/72 95 Room Air 08/14/16 00:00 76 16 122/66 95 08/13/16 23:59 36.9 08/13/16 23:59 Room Air 08/13/16 23:30 75 16 92 08/13/16 23:01 79 18 128/75 93 08/13/16 22:30 64 15 93 08/13/16 22:01 76 18 129/71 96 08/13/16 21:30 86 14 97 08/13/16 21:01 80 14 143/83 96 08/13/16 20:30 76 14 95 Pre-Sedation Airway Assessment Oral Cavity: Dentures Short Thick Neck: No Hx of Sleep Apnea: No Smoking Status: Current Every Day Smoker (1 PPD x 20 years) Mallampati Classification: Class I ASA Classification: Class I Notes The planned sedation has been discussed with the patient and consent obtained. I have identified the patient, determined the appropriateness of sedation and have assessed the patient immediately prior to the procedure. All medicine(s) and interventions are by my order.
[2016-08-14] MEDS ORDERED: HEPARIN SOD (PORCINE) 1000 UNIT/ML 10 ML VIAL ONE (08:48)
[2016-08-14] MEDS ORDERED: HEPARIN SOD (PORCINE) 1000 UNIT/ML 10 ML VIAL IV ONE (08:52)
[2016-08-14] MEDS ORDERED: MIDAZOLAM HCL 1 MG/ML 2ML VIAL IV ONE (08:53)
[2016-08-14] MEDS ORDERED: FENTANYL CITRATE INJ 50 MCG/1 ML 2 ML VIAL IV ONE (08:53)
[2016-08-14] MEDS ORDERED: IODIXANOL (VISIPAQUE) 270 MG/ML 50ML XX ONE (09:22)
[2016-08-14] MEDS ORDERED: LIDOCAINE HCL 1% 20 ML VIAL SQ ONE (09:22)
[2016-08-14] MEDS ORDERED: APIX1TAB3 PO (09:29)
[2016-08-14] MEDS ORDERED: SODIUM CHLORIDE 0.9% 500ML 500 ML IV SCH (09:30)
--- NOTE | 2016-08-14 09:32 | Discharge Instructions ---
Discharge Instructions Date of Service Aug 14, 2016. Admission Reason for Admission: Bilateral Iliac Vein Deep Vein Thrombosis Discharge Discharge Diagnosis / Problem: Left iliac vein occlusion Discharge Goals Goal(s): Therapeutic intervention Activity Recommendations Activity Limitations: per Instructions/Follow-up section . Instructions / Follow-Up Instructions / Follow-Up Call [phone] to schedule a follow up appointment if one not already scheduled. Remove nyla wrap tomorrow and replace with thigh high compression stocking Continu Eliquis at 10mg twice daily for one week then decrease to 5mg twice daily. Script sent to pharmacy SPECIAL CARE INSTRUCTIONS: Medications: * Continue to take your medications as directed. If you have been given a prescription for Plavix, please fill it immediately and take as directed. Incision Care: * Your puncture site may have some bruising and minor swelling for about one week. * You will have a small dressing covering your puncture site. You may remove the dressing after 24 hours and shower. You may let the warm soapy water run over it, but be sure to dry the puncture site well and keep it dry. * DO NOT IMMERSE THE INCISION IN A TUB/POOL/etc. UNTIL HEALED. * Puncture sites should be kept covered with a band-aid until it begins to heal. Restrictions: * Depending on whether you leg or arm was punctured to access the arteries, you will be required to lay flat, hold your arm still, or both, for about 4 hours after the procedure to prevent bleeding. * Limit your activity for the first 48 hours. You may walk and go up and down steps. Avoid excessive bending or movement at the puncture site. Possible Complications: * Excessive Swelling - after blood flow is improved you may notice increased swelling in the lower legs. This is a normal response. This usually depends on the amount of blockages in the leg, how long they have been there prior to your procedure and how much blood flow was restored. Elevating your legs will help to improve this. Please notify our office ([phone] ) if the swelling does not go away after lying in bed overnight. * Infection/Drainage/Bleeding - Drainage or bleeding from the puncture site should be minimal. If you have excessive bleeding or drainage, call our office ([phone]) right away. * Pain - You may experience some mild pain or soreness at your puncture site. If your pain does not improve, please contact our office ([phone]). Call your doctor and seek emergent treatment if you develop: * Temperature above 101 degrees * Any fever or chills * Any redness or purulent drainage from the puncture site * Any new dusky/blue colored toes or feet with coolness or sharp or aching pain. SKIN IRRITATION: * You may experience some redness and/or swelling in the area where radiation was administered. If any skin irritation occurs, please contact your family physician. FOLLOW UP VISIT: Keep any scheduled doctor appointments. Current Hospital Diet Patient's current hospital diet: AHA Diet (Heart Healthy) Discharge Diet Recommended Diet: AHA Diet (Heart Healthy) Procedures Procedures Performed: TPA recheck and completion, Percutaneous Transluminal Angioplasty and Stenting of Left Iliac Vein, Moderate Concious Sedation from 0852 - 0929 Pending Studies Studies pending at discharge: no Medical Emergencies . Who to Call and When: Medical Emergencies: If at any time you feel your situation is an emergency, please call 911 immediately. . Non-Emergent Contact Non-Emergency issues call your: Surgeon . "Provider Documentation" section prepared by Dorian Esparza. VTE Core Measure Inpt VTE Proph given/why not?: Other Anticoagulation
--- NOTE | 2016-08-14 09:32 | Procedure Note ---
Post-Moderate Sedation Plan General Date of Moderate Sedation Aug 14, 2016. Vital Signs: Vital Signs Past 12 Hours Date Time Temp Pulse Resp B/P Pulse Ox O2 Delivery O2 Flow Rate FiO2 08/14/16 08:00 Room Air 08/14/16 08:00 86 11 132/84 96 Room Air 08/14/16 07:00 37.0 93 14 127/79 96 Room Air 08/14/16 06:00 71 16 124/66 93 Room Air 08/14/16 05:00 68 14 128/72 93 Room Air 08/14/16 04:00 36.8 73 19 125/73 93 Room Air 08/14/16 04:00 Room Air 08/14/16 03:00 77 15 123/76 93 Room Air 08/14/16 02:00 77 18 109/73 92 Room Air 08/14/16 01:00 80 16 127/72 95 Room Air 08/14/16 00:00 76 16 122/66 95 08/13/16 23:59 36.9 08/13/16 23:59 Room Air 08/13/16 23:30 75 16 92 08/13/16 23:01 79 18 128/75 93 08/13/16 22:30 64 15 93 08/13/16 22:01 76 18 129/71 96 Review - Discharge Plan Post Moderate Sedation Plan: On clinical assessment, the patient appears to have tolerated the conscious sedation without complications. Patient is recovering as anticipated. Patient will continue to be monitored by nursing and may be discharged when conscious sedation discharge criteria are met.
--- NOTE | 2016-08-14 09:34 | [facility] Post Operative Brief Note ---
Immediate Operative Summary Operative Date Aug 14, 2016. Pre-Operative Diagnosis Bilateral Iliac Vein Thrombosis Post-Operative Diagnosis Same Procedure(s) Performed TPA recheck and completion, Percutaneous Transluminal Angioplasty and Stenting of Left Iliac Vein, Moderate Concious Sedation from 851 - [address] Esparza Immigration Officer Surgeon(s) None Estimated Blood Loss 10 Findings left external iliac vein with <10% residual stenosis Specimens none Anesthesia Local with moderate conscious sedation Complication(s) None Disposition Surgical ICU
[2016-08-14] MEDS ORDERED: OXYCODONE/ACETAMINOPHEN 5-325 TAB PO PRN (09:45)
[2016-08-14] MEDS ORDERED: APIXABAN 2.5 MG TAB PO SCH (10:00)
--- NOTE | 2016-08-14 10:26 | Critical Care Progress Note ---
Critical Care Progress Note Date of Service Aug 14, 2016. ICU Day ICU Day Number: [address] Armando Subjective Patient was stable hemodynamically overnight Pain is well controlled at this point plan is for venogram this am questions and concerns discussed Objective General: not in acute distress, resting in bed Skin: no rashes noted, no suspicious lesions, mild erythema of the left LE, no change from yesterday CVS: S1/ S2 noted, RRR, no rubs/ murmurs noted, no cyanosis RVS: Clear throughout bilaterally, not in acute respiratory distress, no wheezing/ rales/ crackles noted Neck: inspection WNL, full ROM of neck ABD: BSx4, no pain/ tenderness on palpation, no organomegaly MSK: inspection of all limbs WNL except for left LE swelling- no change from yesterday, motor and sensation intact in all limbs NVS: PERRL, EOMI, alert Lymph: No lymphadenopathy palpable Assessment & Plan 1. s/p IVC filter placement and thrombolytic therapy 2. bilateral PE 3. Bilat DVT and extension to common illiacs 4. s/p spinal fusion causing peripheral neuropathy NVS - alert and oriented - monitor for signs of delirium - morphine for pain control as per primary team CVS - monitor on tele RVS - O2 per protocol RENAL - monitor I&O GI - Advance as per primary team FEN - follow BMP HEME - Post op care as per primary team Resident Physician Supervision Note: Dr. Castrejon was resident physician during care of patient. I separately evaluated patient and did history and exam. I discussed the case with the resident and generally agree with the findings and plan. Discussed with Dr. Esparza, patient to be discharged later this afternoon. Documented By: Nadir Armando DO Data Medications: Current Inpatient Medications Medications (Trade) Dose Ordered Sig/Narciso Route Start Time Stop Time Status Last Admin Dose Admin Ondansetron HCl (Zofran Inj) 4 mg Q6H PRN IV 08/13/16 09:45 09/12/16 09:44 Albuterol 2 puffs 2 puffs Q4H PRN INH 08/13/16 09:45 09/12/16 09:44 Sodium Chloride (Nss 500ml) 500 ml @ 100 mls/hr Q5H IV 08/14/16 09:30 08/14/16 12:00 Apixaban (Eliquis Tab) 5 mg BID PO 08/14/16 10:00 09/13/16 09:59 Oxycodone/ Acetaminophen (Percocet 5-325mg Tab) 1 tab Q4H PRN PO 08/14/16 09:45 08/28/16 09:44 I & O: 24-Hour Column 08/14/16 07:59 Intake Total 2527 ml Output Total 2350 ml Balance 177 ml Vital Signs: Date Time Temp Pulse Resp B/P Pulse Ox O2 Delivery O2 Flow Rate FiO2 08/14/16 10:00 85 16 123/76 96 Room Air 08/14/16 09:48 82 20 133/86 96 Room Air 08/14/16 08:00 Room Air 08/14/16 08:00 86 11 132/84 96 Room Air 08/14/16 07:00 37.0 93 14 127/79 96 Room Air 08/14/16 06:00 71 16 124/66 93 Room Air 08/14/16 05:00 68 14 128/72 93 Room Air 08/14/16 04:00 36.8 73 19 125/73 93 Room Air 08/14/16 04:00 Room Air 08/14/16 03:00 77 15 123/76 93 Room Air 08/14/16 02:00 77 18 109/73 92 Room Air 08/14/16 01:00 80 16 127/72 95 Room Air 08/14/16 00:00 76 16 122/66 95 08/13/16 23:59 36.9 08/13/16 23:59 Room Air 08/13/16 23:30 75 16 92 08/13/16 23:01 79 18 128/75 93 08/13/16 22:30 64 15 93 08/13/16 22:01 76 18 129/71 96 08/13/16 21:30 86 14 97 08/13/16 21:01 80 14 143/83 96 08/13/16 20:30 76 14 95 08/13/16 20:01 36.8 81 17 132/86 96 08/13/16 20:00 Room Air 08/13/16 19:30 84 12 97 08/13/16 19:01 73 17 122/76 95 08/13/16 18:00 66 16 126/79 95 Room Air 08/13/16 17:00 86 15 136/82 97 Room Air 08/13/16 16:00 37.0 84 17 122/75 95 Room Air 08/13/16 16:00 Room Air 08/13/16 15:00 71 18 124/79 96 Room Air 08/13/16 14:00 91 18 113/71 96 Room Air 08/13/16 13:00 77 16 115/71 95 Room Air 08/13/16 12:30 71 14 112/71 95 Room Air 08/13/16 12:16 71 14 116/80 97 Room Air 08/13/16 12:01 98 17 132/83 95 Room Air 08/13/16 12:00 Room Air 08/13/16 11:46 74 14 126/76 96 Room Air 08/13/16 11:31 36.5 76 16 111/84 97 Room Air Laboratory Results: Last 24 Hours Test 08/13/16 11:08 08/13/16 15:53 08/13/16 21:48 08/14/16 03:45 White Blood Count 8.11 K/uL 8.94 K/uL 8.93 K/uL 8.75 K/uL Red Blood Count 4.48 M/uL 4.61 M/uL 4.68 M/uL 4.38 M/uL Hemoglobin 14.8 g/dL 15.3 g/dL 15.2 g/dL 14.1 g/dL Hematocrit 40.9 % 42.7 % 43.3 % 39.7 % Mean Corpuscular Volume 91.3 fL 92.6 fL 92.5 fL 90.6 fL Mean Corpuscular Hemoglobin 33.0 pg 33.2 pg 32.5 pg 32.2 pg Mean Corpuscular Hemoglobin Concent 36.2 g/dl 35.8 g/dl 35.1 g/dl 35.5 g/dl Platelet Count 126 K/uL 122 K/uL 128 K/uL 113 K/uL Mean Platelet Volume 9.9 fL 10.1 fL 10.1 fL 10.2 fL Neutrophils (%) (Auto) 64.2 % 66.4 % 70.4 % 69.8 % Lymphocytes (%) (Auto) 25.5 % 22.9 % 20.7 % 20.7 % Monocytes (%) (Auto) 8.0 % 9.3 % 7.6 % 7.4 % Eosinophils (%) (Auto) 1.6 % 0.9 % 1.0 % 1.0 % Basophils (%) (Auto) 0.5 % 0.3 % 0.2 % 0.3 % Neutrophils # (Auto) 5.20 K/uL 5.93 K/uL 6.28 K/uL 6.10 K/uL Lymphocytes # (Auto) 2.07 K/uL 2.05 K/uL 1.85 K/uL 1.81 K/uL Monocytes # (Auto) 0.65 K/uL 0.83 K/uL 0.68 K/uL 0.65 K/uL Eosinophils # (Auto) 0.13 K/uL 0.08 K/uL 0.09 K/uL 0.09 K/uL Basophils # (Auto) 0.04 K/uL 0.03 K/uL 0.02 K/uL 0.03 K/uL RDW Standard Deviation 42.5 fL 43.5 fL 43.2 fL 41.7 fL RDW Coefficient of Variation 12.7 % 12.8 % 12.8 % 12.6 % Immature Granulocyte % (Auto) 0.2 % 0.2 % 0.1 % 0.8 % Immature Granulocyte # (Auto) 0.02 K/uL 0.02 K/uL 0.01 K/uL 0.07 K/uL Activated Partial Thromboplast Time 29.0 SECONDS 27.1 SECONDS 28.5 SECONDS 24.7 SECONDS Partial Thromboplastin Ratio 1.1 1.0 1.1 1.0 Fibrinogen 285 mg/dl 315 mg/dl 289 mg/dl 262 mg/dl
--- NOTE | 2016-08-16 10:28 | DIAGNOSTIC IMAGING REPORT ---
DATE OF PROCEDURE: 08/13/2016 PREOPERATIVE DIAGNOSES: Venous thromboembolism with pulmonary embolism and bilateral iliac vein thrombosis. POSTOPERATIVE DIAGNOSES: Same. PROCEDURES: 1. Insertion of infrarenal IVC filter from right internal jugular vein. 2. Bilateral ultrasound guided femoral venous access. 3. Bilateral iliac venogram. 4. Inferior venacavogram. 5. Insertion of catheter for thrombolytic therapy. 6. Infusion of thrombolytic therapy. 7. Administration of conscious sedation. SURGEON: Dorian Esparza MD ORDER ENTRY CLERK: Aba Kim MD ANESTHESIA: Local plus conscious sedation.(12min) ESTIMATED BLOOD LOSS: 10 mL. COMPLICATIONS: None. INDICATIONS FOR PROCEDURE: This is a 55-year-old gentleman who presented with a prior history of PE. On recent CT scan he is also discovered to have bilateral lower extremity iliac vein DVT. He returns to the office with a fair amount of left lower extremity swelling and discomfort. He has been started on anticoagulation. This did not help his symptoms. We discussed the option of the above procedure with him and he agreed to go all the risks, benefits, alternatives and was willing to proceed. DESCRIPTION OF PROCEDURE: The patient was brought to the operating room and a timeout was performed. All parties agreed to correct patient and procedure to be performed. We started by placing the inferior vena cava filter. The right neck was prepped and draped in normal sterile fashion. Under ultrasound guidance, the right internal jugular vein was accessed on the first attempt. The wire was advanced to the level of the inferior vena cava. The Cook Celect retrievable IVC filter was brought in the field. The wire and the dilator were removed and a venacavogram was performed. The renal veins were located. The filter was inserted through the dilator. The filter was deployed below the renal veins. Of note, there was a slight tilt to the filter upon final deployment. All sheath wires and catheters were removed from the neck and pressure was held. We next turned our attention to performing access from the bilateral lower extremities. The bilateral groins were prepped and draped in normal sterile fashion. A second timeout was performed and all parties agreed to correct patient and procedure to be performed. Under ultrasound guidance, the left and right femoral veins were accessed after installation of the local anesthetic. A wire was advanced on both sides and the sheaths were upsized to a 5-Swiss sheath. On the left side, the sheath could not be advanced all the way. However, we did confirm that we were in the vein on the left side. Next, bilateral iliac venogram was performed. This showed widely patent iliac veins on the right. On the left, there was a complete occlusion of the left external iliac and proximal common iliac vein. I did appear that the distal common iliac on the left side reconstituted. The cava was widely patent. We elected to treat the left side with thrombolytic therapy. Given that there was no clot on the right side and he was minimally symptomatic on that side, we elected not to treat that side. With a Glidewire and a Quick-Cross catheter, the venous occlusion on the left side was traversed. Angiogram through the catheter showed that we did reenter into the inferior vena cava. Next, the 20 cm fountain catheter was then brought onto the field. Under fluoroscopic guidance, it was placed across the vein occlusion through the external iliac vein and into the common iliac vein. We did stop the catheter placement short of the inferior vena cava. The sheath was . The sheath was hooked up to saline. On the right side, the sheath was hooked up to low dose heparin infusion. The wire was then placed through the fountain catheter so that all the side ports could be used and the TPA could be instilled. Completion angiography showed the fountain catheter to be in good position across the iliac vein occlusion but not extending too far or into the vena cava. The sheath on the right and left side were sutured in place. The fountain catheter on the left was covered in a sterile dressing. The patient was awakened from anesthesia and will be transferred to ICU for infusion of thrombolytic therapy overnight. A catheter recheck will be performed tomorrow. There were no immediate complications. I, Dr. Esparza was present and scrubbed for the entire procedure. LUIS ANTONIO
--- NOTE | 2016-08-17 12:31 | DISCHARGE SUMMARY ---
ADMISSION DIAGNOSES: 1. Bilateral common iliac vein thrombosis. 2. Left external iliac vein thrombosis. DISCHARGE DIAGNOSES: Status post insertion of an inferior vena cava filter and thrombolysis with TPA and transluminal angioplasty and stenting of the left iliac vein. DISCHARGE CONDITION: Stable. CONSULTATIONS IN THE HOSPITAL: Included critical care. PROCEDURES IN THE HOSPITAL: Included: 1. Insertion of his superior vena cava filter and bilateral iliac vein venogram and insertion of an infusion catheter for thrombolysis on 08/13/2016. 2. TPA recheck and completion venography with percutaneous transluminal angioplasty and stenting of left iliac vein on 08/14/2016. HISTORY OF PRESENT ILLNESS: Mr. Florez is a 55-year-old male who was found to have pulmonary emboli and bilateral lower extremity swelling at the end of June where he was found to have DVT of the left lower extremity as well as the iliac veins. He has been on anticoagulation with Eliquis since that time. He had no previous history of deep venous thrombosis. The patient was continuing to complain of swelling of his lower extremities as well as discomfort which is interfering with his daily activities. The patient was referred to Dr. Esparza for evaluation and treatment. The possibility of using thrombolytics was discussed with the patient. Even thought he was approaching the end of the effective timeframe for thrombolytics. The procedure of filter insertion as well as venography and thrombolytics was discussed with the patient as well as risks, benefits, alternatives. He expressed understanding and agreement to proceed. HOSPITAL COURSE: The patient was admitted 08/13/2016 after undergoing his initial venogram and insertion of inferior vena cava filter as well as the infusion catheter for thrombosis. The patient tolerated this well. TPA then infused overnight. The following morning, the patient underwent a TPA recheck and percutaneous transluminal angioplasty and stenting of his left iliac vein with less than 10% residual stenosis noted. The patient tolerated that procedure well as well and was felt to be stable enough for discharge that same day. PHYSICAL EXAMINATION: VITAL SIGNS: On day of discharge, his vital signs were as follows: A temperature of 36.8, pulse of 90, respiratory rate of 16, blood pressure of 137/80, pulse oximetry of 96% on room air. CONSTITUTIONAL: The patient is a generally healthy appearing, well-nourished, well-developed middle aged male in no acute distress. He ambulated without assistance and is active, alert and oriented x4 with normal recent and remote memory. HEAD: Normocephalic and atraumatic. EYES: EOMI. EARS, NOSE, MOUTH, THROAT: Demonstrated no hearing loss, rhinorrhea or pharyngeal erythema. NECK: Supple, nontender with midline trachea without masses or crepitus. LUNGS: Demonstrated no dyspnea. They were decreased but clear throughout. CARDIOVASCULAR EXAMINATION: Demonstrated nondisplaced apical impulse with a regular rate and rhythm without murmurs. His peripheral pulses are full and equal in all extremities unless otherwise noted, specifically carotid, brachial and radial were normal. His femorals were +2, distal pulses were difficult to palpate due to the edema of his lower extremities. ABDOMEN: Soft, nontender with normoactive bowel sounds in all 4 quadrants without guarding or rebound. There was no flank or CVA tenderness. EXTREMITIES: Bilateral upper extremities demonstrate no cyanosis, edema, clubbing, varicosities or ulcers. The patient's bilateral lower extremities did demonstrate edema, 1+ on the right, 3+ on the left. There were no ulcerations or erythema noted. Brisk capillary refill and no sign of distal ischemia. NEUROLOGIC: The patient had grossly intact cranial nerves and grossly intact sensation. DIET UPON DISCHARGE: Should be a normal diet. MEDICATIONS UPON DISCHARGE: Were reconciled in the chart and are as per his discharge instructions with the noted continuation of Eliquis. FOLLOWUP: Should be with Dr. Esparza or his PA Swetha Huynh in 2 weeks or so for reevaluation. Call with any other questions or concerns.
--- NOTE | 2016-09-13 09:38 | DIAGNOSTIC IMAGING REPORT ---
DATE OF PROCEDURE: 08/14/2016 DATE OF PROCEDURE: 08/14/2016. PREOPERATIVE DIAGNOSIS: Left iliac vein occlusion. POSTOPERATIVE DIAGNOSIS: Same. PROCEDURE: TPA recheck of the left lower extremity, percutaneous angioplasty and stenting of left iliac vein with moderate sedation 0852 to 0929 hours. SURGEON: Dr. Esparza. ANESTHETIC: Local with moderate conscious sedation. PROCEDURE INDICATIONS: The patient is a 55-year-old gentleman who was undergoing TPA for left iliac vein occlusion. He is now brought back for followup. The patient understood the risks, options and benefits and agreed to have this procedure. The patient was taken to the angio suite and placed in supine position. After the left groin and catheter were prepped and draped. The catheter was reinjected. There was good resolution of the clot in the common iliac vein. There was a residual tight stenosis in the external iliac vein and resolution of clot beyond. There was stenosis of the external iliac. At that point, the wire was inserted. The infusion catheter was removed. An 8 x 60 Winnett balloon was used and the external iliac was ballooned. It recoiled back. We then exchanged the sheath for 11 Irish sheath 18 x 4 Wallstent was then inserted in the left external iliac vein. It was ballooned with a 12 x 4 balloon. We then also ballooned the common iliac vein just at the inguinal ligament. Good results were seen. There was good flow seen through the external iliac and common iliac veins on the left side at the end of the procedure. There was no residual stenosis noted in the external iliac vein. At that point the sheath was pulled, pressure was applied. Adequate hemostasis was obtained. Sterile dressings were applied to the wound. The patient left the angio suite in good condition and tolerated the procedure well.
== END 2016-08-14 13:29 | disposition home or self-care (01) | DRG 254 ==
LOC: C.ACU 05:51 → C.MSICU 06:20
PROVIDERS: ADMIT Surgery Vascular Surgery; ATTEND Surgery Vascular Surgery
PROC: B51 Imaging, Veins, Fluoroscopy (ICD-10-PCS; principal; 2016-08-13 08:00)
PROC: 3E03317 Introduction of Other Thrombolytic into Peripheral Vein, Percutaneous Approach (ICD-10-PCS; principal; 2016-08-13 08:00)
PROC: 06H Lower Veins, Insertion (ICD-10-PCS; principal; 2016-08-13 08:00)
PROC: 06HD33Z Insertion of Infusion Device into Left Common Iliac Vein, Percutaneous Approach (ICD-10-PCS; principal; 2016-08-13 08:00)
PROC: B54DZZ3 Ultrasonography of Bilateral Lower Extremity Veins, Intravascular (ICD-10-PCS; principal; 2016-08-13 08:00)
PROC: 06H03DZ Insertion of Intraluminal Device into Inferior Vena Cava, Percutaneous Approach (ICD-10-PCS; principal; 2016-08-13 08:00)
PROC: 067D3DZ Dilation of Left Common Iliac Vein with Intraluminal Device, Percutaneous Approach (ICD-10-PCS; 2016-08-14)
DX: I82.423 Acute embolism and thrombosis of iliac vein, bilateral (principal); F17.210 Nicotine dependence, cigarettes, uncomplicated; Z86.711 Personal history of pulmonary embolism; Z88.0 Allergy status to penicillin; Z82.49 Family history of ischemic heart disease and other diseases of the circulatory system; Z79.01 Long term (current) use of anticoagulants

== ENCOUNTER 2016-08-26 11:12 | Emergency (ER) | payer OTHER ==
[~2016-08-26] VITALS: Ht 177.8 cm; Wt 97.5 kg
[~2016-08-26 11:12] MED LIST changes: -DOXY100C2 PO
[2016-08-26 11:17] VITALS: TEMP 36.9; Ht 177.8 cm; Wt 97.5 kg
[2016-08-26] MEDS ORDERED: SODIUM CHLORIDE 0.9% 1000ML 1,000 ML IV STA (11:54)
[2016-08-26 12:07] LABS: BASO % 0.8 %; BASO ABS # 0.04 K/uL (0-0.2); COMPLETE YES; EOS % 2.7 %; HEMATOCRIT 46.5 % (42-52); IG% 0.2 %; LYMPH % 28.3 %; LYMPH ABS # 1.46 K/uL (1.2-3.4); MEAN CELL VOLUME 93.4 fL (80-100); MEAN CORPUSCULAR HEMOGLOBIN 33.7 pg (25-34); MEAN CORPUSCULAR HGB CONC 36.1 g/dl (32-36); MEAN PLATELET VOLUME 10.3 fL (7.4-10.4); PLATELET COUNT 125 K/uL (130-400); RED BLOOD COUNT 4.98 M/uL (4.7-6.1); WHITE BLOOD COUNT 5.16 K/uL (4.8-10.8)
[2016-08-26] MEDS ORDERED: OPTIRAY 320 IV PRN (12:15)
[2016-08-26 12:16] LABS: ISTAT HEMOGLOBIN 16.3 g/dl (14.0-18.0); ISTAT IONIZED CALCIUM 1.24 mmol/l (1.12-1.32)
[2016-08-26 12:20] LABS: ALT/SGPT 29 U/L (12-78); BLOOD UREA NITROGEN 9 mg/dl (7-18); BUN/CREATININE RATIO 8.9 (10-20); CALCIUM 9.3 mg/dl (8.5-10.1); CARBON DIOXIDE 30 mmol/L (21-32); CHLORIDE 103 mmol/L (98-107); GLUCOSE 112 mg/dl (70-99); POTASSIUM 3.9 mmol/L (3.5-5.1); SODIUM 139 mmol/L (136-145)
[2016-08-26 12:25] LABS: ALKALINE PHOSPHATASE 124 U/L (45-117); AST/SGOT 15 U/L (15-37); CKMB/CK RATIO 0.6 (0-3.0)
[2016-08-26 12:40] VITALS: O2SAT 99
--- NOTE | 2016-08-26 12:47 | EMERGENCY ROOM VISIT NOTE ---
History Report prepared by Tom: Nadir Conklin Under the Supervision of: Dr. Karl Mishra M.D. First contact with patient: 11:46 Chief Complaint: BACK PAIN Stated Complaint: BACK PAIN, LUNG PAIN History of Present Illness The patient is a 55 year old male who presents to the Emergency Room with complaints of persistent back pain beginning yesterday. He notes he was outside doing activity when the symptoms began, and notes it feels similar to when he had a PE a few months ago. He has had an IVC filter placed, and takes Eliquis twice per days. He notes his dosage was recently lowered to 5 mg, and he states having issues each time his Eliquis dosage is decreased. The patient admits to smoking. Source of History: patient Onset: yesterday Position: back Symptom Intensity: similar to recent PE Quality: other (back pain) Timing: other (persistent) Review of Systems See HPI for pertinent positives & negatives. A total of 10 systems reviewed and were otherwise negative. Past Medical & Surgical Medical Problems: (1) Dyslipidemia (2) History of Lyme disease (3) History of pulmonary embolism (4) Spinal stenosis of lumbar region (5) Tobacco abuse Surgical Problems: (1) H/O sinus surgery (2) H/O spinal fusion Family History Breast cancer MOTHER COPD (chronic obstructive pulmonary disease) FATHER Diabetes mellitus MOTHER GRANDMOTHER Pulmonary embolism FATHER Social History Smoking Status: Current Every Day Smoker Drug Use: none Marital Status: Occupation Status: employed Current/Historical Medications Scheduled Apixaban (Eliquis), 5 MG PO BID Docusate Sodium (Colace), 1 CAP PO BID Gabapentin (Neurontin), 300 MG PO HS Sennosides (Senokot), 8.6 MG PO HS Scheduled PRN Albuterol Hfa (Ventolin Hfa), 2 PUFFS INH Q4H PRN for Shortness of Breath Oxycodone Immediate Rel Tab (Roxicodone Ir), 1-2 TAB PO Q4H PRN for Severe Pain Allergies Coded Allergies: Penicillins (Verified Adverse Reaction, Mild, NAUSEA/VOMITING, 08/26/16) Physical Exam Vital Signs Date Time Temp Pulse Resp B/P Pulse Ox O2 Delivery O2 Flow Rate FiO2 08/26/16 14:15 70 70 126/75 99 08/26/16 14:10 70 16 126/75 99 Room Air 08/26/16 12:40 75 22 131/42 99 Room Air 08/26/16 12:40 99 Room Air 08/26/16 12:40 99 Room Air 08/26/16 12:15 73 08/26/16 11:45 78 23 138/79 100 Room Air 08/26/16 11:17 36.9 91 18 163/94 99 Room Air Physical Exam GENERAL: Patient is a healthy-appearing well-nourished HEAD: Normocephalic atraumatic EYES: Ocular movements intact pupils equal and react to light OROPHARYNX mucous membranes are moist no exudates present no erythema or edema present NECK: Supple no nuchal rigidity CHEST: Good equal expansion LUNGS: Clear and equal to auscultation CARDIAC: Normal S1 and S2 ABDOMEN: Soft nontender no guarding BACK: Tenderness to the T6-T7 area on the right. No midline tenderness to the back. EXTREMITIES: No pain upon palpation normal muscle strength in all groups no clubbing cyanosis or edema NEURO: Patient is following commands is answering questions appropriately. Alert and oriented x3 Cranial Nerves 2-12 grossly intact Medical Decision & Procedures ER Provider Diagnostic Interpretation: Radiology results as stated below per my review and radiologist interpretation: CT ANGIOGRAPHY OF THE CHEST, PULMONARY EMBOLUS PROTOCOL FINDINGS: There has been near complete resolution of the extensive bilateral pulmonary emboli shown on CT of July 01, 2016. There are few residual small segmental pulmonary emboli within the right lung, including an embolus within the right lower lobe shown on image 119 of 288. No new emboli are identified. There is no evidence of thoracic aortic dissection. Size of the heart is normal. There is no pericardial effusion. Groundglass opacities suggest atelectasis. There is no pneumothorax or pleural effusion. The bony thorax and upper abdomen are unremarkable. IMPRESSION: Near complete resolution of the extensive bilateral pulmonary emboli shown on exam of July 01, 2016. A few residual small segmental emboli within the right lung. No new pulmonary emboli identified. Electronically signed by: Jerson Villaseñor M.D. 08/26/2016 1:07 PM Dictated Date/Time: 08/26/2016 1:02 PM Laboratory Results 08/26/16 11:40 Red Blood Count 4.98, Mean Corpuscular Volume 93.4, Mean Corpuscular Hemoglobin 33.7, Mean Corpuscular Hemoglobin Concent 36.1, Mean Platelet Volume 10.3, Neutrophils (%) (Auto) 63.0, Lymphocytes (%) (Auto) 28.3, Monocytes (%) (Auto) 5.0, Eosinophils (%) (Auto) 2.7, Basophils (%) (Auto) 0.8, Neutrophils # (Auto) 3.25, Lymphocytes # (Auto) 1.46, Monocytes # (Auto) 0.26, Eosinophils # (Auto) 0.14, Basophils # (Auto) 0.04 08/26/16 11:40 Test 08/26/16 11:40 08/26/16 12:03 White Blood Count 5.16 K/uL (4.8-10.8) Red Blood Count 4.98 M/uL (4.7-6.1) Hemoglobin 16.8 g/dL (14.0-18.0) Hematocrit 46.5 % (42-52) Mean Corpuscular Volume 93.4 fL (80-100) Mean Corpuscular Hemoglobin 33.7 pg (25-34) Mean Corpuscular Hemoglobin Concent 36.1 g/dl (32-36) Platelet Count 125 K/uL (130-400) Mean Platelet Volume 10.3 fL (7.4-10.4) Neutrophils (%) (Auto) 63.0 % Lymphocytes (%) (Auto) 28.3 % Monocytes (%) (Auto) 5.0 % Eosinophils (%) (Auto) 2.7 % Basophils (%) (Auto) 0.8 % Neutrophils # (Auto) 3.25 K/uL (1.4-6.5) Lymphocytes # (Auto) 1.46 K/uL (1.2-3.4) Monocytes # (Auto) 0.26 K/uL (0.11-0.59) Eosinophils # (Auto) 0.14 K/uL (0-0.5) Basophils # (Auto) 0.04 K/uL (0-0.2) RDW Standard Deviation 43.3 fL (36.4-46.3) RDW Coefficient of Variation 12.7 % (11.5-14.5) Immature Granulocyte % (Auto) 0.2 % Immature Granulocyte # (Auto) 0.01 K/uL (0.00-0.02) Est Creatinine Clear Calc Drug Dose 100.1 ml/min Estimated GFR () 99.2 Estimated GFR (Non- 85.5 BUN/Creatinine Ratio 8.9 (10-20) Calcium Level 9.3 mg/dl (8.5-10.1) Total Bilirubin 0.4 mg/dl (0.2-1) Direct Bilirubin < 0.1 mg/dl (0-0.2) Aspartate Amino Transf (AST/SGOT) 15 U/L (15-37) Alanine Aminotransferase (ALT/SGPT) 29 U/L (12-78) Alkaline Phosphatase 124 U/L (45-117) Total Creatine Kinase 112 U/L (39-308) Creatine Kinase MB 0.7 ng/ml (0.5-3.6) Creatine Kinase MB Ratio 0.6 (0-3.0) Troponin I < 0.015 ng/ml (0-0.045) Total Protein 7.8 gm/dl (6.4-8.2) Albumin 3.8 gm/dl (3.4-5.0) Lipase 1613 U/L (73-393) Bedside Hemoglobin 16.3 g/dl (14.0-18.0) Bedside Hematocrit 48 % (42-52) Bedside Sodium 140 mEq/L (135-144) Bedside Potassium 4.0 mEq/L (3.3-5.0) Bedside Chloride 100 mEq/L (101-112) Bedside Total CO2 27 mEq/l (24-31) Anion Gap 18.0 mmol/L (16-25) Bedside Blood Urea Nitrogen 8 mg/dl (7-18) Bedside Creatinine 1.0 mg/dl (0.6-1.3) Bedside Glucose (other) 111 mg/dl (70-99) Bedside Ionized Calcium (Abdiaziz) 1.24 mmol/l (1.12-1.32) Labs reviewed by ED physician. Medications Administered Medications (Trade) Dose Ordered Sig/Narciso Route Start Time Stop Time Status Last Admin Dose Admin Sodium Chloride (Nss 1000ml) 1,000 ml @ 999 mls/hr Q1H1M STAT IV 08/26/16 11:54 08/26/16 12:54 DC 08/26/16 12:01 999 MLS/HR ECG Indication: back/shoulder pain Rate (beats per minute): 83 Rhythm: sinus rhythm Findings: no acute ischemic change, no ectopy ED Course 1149: Past medical records reviewed. The patient was evaluated in room B11B. A complete history and physical examination was performed. 1154: Ordered NSS 1,000 ml @ 999 mls/hr IV. 1350: Upon reexamination the patient is doing well. I discussed results and treatment plan with the patient. He verbalizes agreement and understanding. The patient is ready for discharge. Medical Decision Differential diagnosis: Etiologies such as infections, reactive airway disease, pneumonia, pneumothorax , COPD, CHF, cardiac ischemia, pulmonary embolism, musculoskeletal, gastrointestinal, as well as others were entertained. This is a 55-year-old male who presents emergency department complaining of right-sided mid back pain. The patient reports he had a history of back pain when he had pulmonary embolus diagnosed. The patient has been taking his medication however he continues to smoke. Based on the patient's past medical history he was sent for CAT scan of the chest however this shows resolving pulmonary embolus. The patient does have an elevation in his lipase however he had serial abdominal examinations performed on him in the emergency department and at no time did the patient exhibit abdominal tenderness. Based on these findings I feel that the patient can be safely discharged home however I cautioned the patient to take a clear liquid diet and return to the emergency department if his pain worsens or he develops vomiting. I also encouraged patient follow-up with gastroenterology for his lipase. Patient was in agreement with treatment plan. Impression Primary Impression: Back pain Additional Impression: Pancreatitis Scribe Attestation The scribe's documentation has been prepared under my direction and personally reviewed by me in its entirety. I confirm that the note above accurately reflects all work, treatment, procedures, and medical decision making performed by me. Departure Information Dispostion Home / Self-Care Prescriptions Docusate Sodium (COLACE) 100 Mg Cap 1 CAP PO BID for 10 Days, #20 CAP Prov: Karl Mishra MD 08/26/16 Sennosides (SENOKOT) 8.6 Mg Tab 8.6 MG PO HS for 10 Days, #10 TAB Prov: Karl Mishra MD 08/26/16 Oxycodone Immediate Rel Tab (ROXICODONE IR) 5 Mg Tab 1-2 TAB PO Q4H Y for Severe Pain, #14 TAB Prov: Karl Mishra MD 08/26/16 Referrals Pedrito Fernandez M.D. (PCP) Patient Instructions ED Back Care Tips, ED Diet Clear Liquid, ED Smoking Cessation, My [facility], Pancreatitis Acute Dc Additional Instructions clear liquid diet next 48 hours Follow up with Dr banuelos's office Take 1000 mg Tylenol every 6 hours Take Oxy IR for breakthrough pain You received narcotic or benzodiazepene medication while in the emergency room today. Do not drive, operate heavy machinery, or drink alcohol under the influence of this medication. You have been examined and treated today on an emergency basis only. This is not a substitute for, or an effort to provide, complete comprehensive medical care. It is impossible to recognize and treat all injuries or illnesses in a single emergency department visit. It is therefore important that you follow up closely with Dr Fernandez. Call as soon as possible for an appointment. Thank you for your time and consideration. I look forward to speaking with you again soon. Please don't hesitate to call us if you have any questions. Problem Qualifiers Primary Impression: Back pain Back pain location: thoracic back pain Chronicity: acute Back pain laterality: right Qualified Codes: M54.6 - Pain in thoracic spine Additional Impression: Pancreatitis Chronicity: acute Pancreatitis type: other Acute pancreatitis complication : unspecified Qualified Codes: K85.80 - Other acute pancreatitis without necrosis or infection
--- NOTE | 2016-08-26 13:08 | DIAGNOSTIC IMAGING REPORT ---
CT ANGIOGRAPHY OF THE CHEST, PULMONARY EMBOLUS PROTOCOL CLINICAL HISTORY: Right-sided back pain. History of pulmonary embolus. COMPARISON STUDY: Chest CT July 01, 2016. TECHNIQUE: Following IV administration of 99 mL of Optiray-320, helical axial images of the chest were obtained utilizing the pulmonary embolus protocol. Maximal intensity projections and sagittal and coronal reformats were viewed on an independent 3D workstation. IV contrast was administered without complication. CT DOSE: 500.50 mGy.cm FINDINGS: There has been near complete resolution of the extensive bilateral pulmonary emboli shown on CT of July 01, 2016. There are few residual small segmental pulmonary emboli within the right lung, including an embolus within the right lower lobe shown on image 119 of 288. No new emboli are identified. There is no evidence of thoracic aortic dissection. Size of the heart is normal. There is no pericardial effusion. Groundglass opacities suggest atelectasis. There is no pneumothorax or pleural effusion. The bony thorax and upper abdomen are unremarkable. IMPRESSION: Near complete resolution of the extensive bilateral pulmonary emboli shown on exam of July 01, 2016. A few residual small segmental emboli within the right lung. No new pulmonary emboli identified. Electronically signed by: Jerson Villaseñor M.D. 08/26/2016 1:07 PM Dictated Date/Time: 08/26/2016 1:02 PM
[2016-08-26] MEDS ORDERED: SENN1TAB77 PO (13:27)
[2016-08-26] MEDS ORDERED: DOCU-94 PO (13:27)
[2016-08-26] MEDS ORDERED: OXYC1TAB3 PO (13:27)
[2016-08-26 14:15] VITALS: BP 126/75; PULSE 70; O2SAT 99
== END 2016-08-26 14:15 | disposition home or self-care (01) ==
LOC: C.EDB 11:13
DX: M54.6 Pain in thoracic spine (principal); K85.80 Other acute pancreatitis without necrosis or infection; F17.200 Nicotine dependence, unspecified, uncomplicated; E78.5 Hyperlipidemia, unspecified; M48.06 Spinal stenosis, lumbar region; A69.20 Lyme disease, unspecified; Z86.711 Personal history of pulmonary embolism; Z79.01 Long term (current) use of anticoagulants; Z80.3 Family history of malignant neoplasm of breast; Z83.3 Family history of diabetes mellitus

== ENCOUNTER → 2016-09-03 | Outpatient (CLI) | payer OTHER ==
[~2016-09-03] MED LIST changes: +DOCU-94 PO; +OXYC1TAB3 PO; +SENN1TAB77 PO
[2016-09-03 16:49] LABS: ALKALINE PHOSPHATASE 126 U/L (45-117); ALT/SGPT 30 U/L (12-78); AMYLASE 52 U/L (25-115); AST/SGOT 16 U/L (15-37)
== END | disposition home or self-care (01) ==
LOC: C.LAB1850 14:28
PROVIDERS: ATTEND Registered Nurse
DX: R74.8 Abnormal levels of other serum enzymes (principal)

== ENCOUNTER → 2016-09-11 | Outpatient (CLI) | payer OTHER ==
[~2016-09-11] MED LIST changes: -DOCU-94 PO; -SENN1TAB77 PO
--- NOTE | 2016-09-11 08:08 | DIAGNOSTIC IMAGING REPORT ---
ULTRASOUND RIGHT UPPER QUADRANT ABDOMEN CLINICAL HISTORY: Epigastric abdominal pain. COMPARISON STUDY: Abdominal CT dated 07/06/16. TECHNIQUE: Real-time, grayscale, and color flow sonography of the right upper quadrant of the abdomen was performed. Images are reviewed in the transverse and longitudinal planes. FINDINGS: Liver: The liver is top normal in size and demonstrates heterogeneously increased echotexture consistent with hepatic steatosis. There is no intrahepatic biliary ductal dilatation. The main portal vein is patent. Gallbladder: The gallbladder is normal in appearance. No gallstones are identified. There is no gallbladder wall thickening or pericholecystic fluid. A sonographic Love's sign is reportedly absent. The common bile duct measures up to 0.4 cm in diameter. Pancreas: Visualized portions of the pancreatic head and body are normal in appearance. The splenic vein is patent. Right kidney: Survey images of the right kidney demonstrate normal size and echotexture. There is no hydronephrosis. Ascites: None. IMPRESSION: 1. No acute sonographic abnormality is identified in the right upper quadrant. No gallstones are seen. 2. Hepatic steatosis. Electronically signed by: Cornelio Gray M.D. 09/11/2016 8:06 AM Dictated Date/Time: 09/11/2016 8:04 AM
== END | disposition home or self-care (01) ==
LOC: C.ULTR 07:20
PROVIDERS: ATTEND Registered Nurse
DX: K85.90 Acute pancreatitis without necrosis or infection, unspecified (principal)

== ENCOUNTER → 2016-10-11 | Outpatient (CLI) | payer OTHER ==
--- NOTE | 2016-10-11 18:31 | DIAGNOSTIC IMAGING REPORT ---
LEFT LOWER EXTREMITY VENOUS DOPPLER CLINICAL HISTORY: Chronic embolism. COMPARISON STUDY: Left lower extremity venous Doppler July 06, 2016. TECHNIQUE: Sonography of the deep venous system of the left lower extremity was performed. Compression and augmentation were evaluated. FINDINGS: The left common femoral, superficial femoral and popliteal veins were compressible. Augmentation was normal. Flow was shown within the deep calf vessels. IMPRESSION: No evidence of deep venous thrombus within the left lower extremity. Electronically signed by: Jerson Villaseñor M.D. 10/11/2016 6:29 PM Dictated Date/Time: 10/11/2016 6:29 PM
--- NOTE | 2016-10-11 18:33 | DIAGNOSTIC IMAGING REPORT ---
DOPPLER SONOGRAPHY OF THE IVC AND ILIAC VEINS CLINICAL HISTORY: LEFT LEG, CHRONIC EMBOLISM ND THROMBOSIS OF ILIAC COMPARISON STUDY: CT of the abdomen and pelvis July 06, 2016. FINDINGS: Visualized portions of the IVC are patent. Portions of the IVC are obscured by overlying bowel gas. The bilateral common and external iliac veins are patent. IMPRESSION: No thrombus identified within the IVC, bilateral common iliac and bilateral external iliac veins. Portions of the IVC obscured by overlying bowel gas. Electronically signed by: Jerson Villaseñor M.D. 10/11/2016 6:32 PM Dictated Date/Time: 10/11/2016 6:30 PM
== END | disposition home or self-care (01) ==
LOC: C.ULTR 17:30
PROVIDERS: ATTEND Surgery Vascular Surgery
DX: I82.523 Chronic embolism and thrombosis of iliac vein, bilateral (principal)

== ENCOUNTER → 2017-08-14 | Outpatient (CLI) | payer OTHER ==
[~2017-08-14] MED LIST changes: -OXYC1TAB3 PO
[2017-08-14 17:36] LABS: BASO % 0.5 %; BASO ABS # 0.05 K/uL (0-0.2); EOS % 1.2 %; EOS ABS # 0.12 K/uL (0-0.5); HEMATOCRIT 47.9 % (42-52); HEMOGLOBIN 17.3 g/dL (14.0-18.0); IG# 0.03 K/uL (0.00-0.02); LYMPH ABS # 3.01 K/uL (1.2-3.4); MEAN CELL VOLUME 93.7 fL (80-100); MEAN CORPUSCULAR HEMOGLOBIN 33.9 pg (25-34); MEAN CORPUSCULAR HGB CONC 36.1 g/dl (32-36); MEAN PLATELET VOLUME 10.5 fL (7.4-10.4); MONO % 6.8 %; MONO ABS # 0.68 K/uL (0.11-0.59); NEUT % 61.2 %; NEUT ABS # 6.14 K/uL (1.4-6.5); PLATELET COUNT 157 K/uL (130-400); RED CELL DISTRIBUTION WIDTH CV 12.4 % (11.5-14.5); RED CELL DISTRIBUTION WIDTH SD 42.3 fL (36.4-46.3); WHITE BLOOD COUNT 10.03 K/uL (4.8-10.8)
[2017-08-14 18:04] LABS: ALBUMIN 4.1 gm/dl (3.4-5.0); AST/SGOT 16 U/L (15-37); BLOOD UREA NITROGEN 9 mg/dl (7-18); CALCIUM 9.7 mg/dl (8.5-10.1); CARBON DIOXIDE 28 mmol/L (21-32); CREATININE 1.04 mg/dl (0.60-1.40); GLUCOSE 103 mg/dl (70-99); LIPASE 907 U/L (73-393); POTASSIUM 4.2 mmol/L (3.5-5.1); SODIUM 137 mmol/L (136-145); TOTAL PROTEIN 8.2 gm/dl (6.4-8.2)
[2017-08-14 18:09] LABS: ALKALINE PHOSPHATASE 125 U/L (45-117); ALT/SGPT 32 U/L (12-78)
== END | disposition home or self-care (01) ==
LOC: C.LABBFT 14:33
PROVIDERS: ATTEND Nurse Practitioner
DX: R10.11 Right upper quadrant pain (principal)

== ENCOUNTER → 2017-08-15 | Outpatient (CLI) | payer OTHER ==
[~2017-08-15] MED LIST changes: +OPTIRAY 320 IV PRN
--- NOTE | 2017-08-15 07:57 | DIAGNOSTIC IMAGING REPORT ---
ABD/PELVIS IV CONTRAST ONLY CT DOSE: 617.08 mGy.cm HISTORY: Pancreatitis. Pain. K85.90 [id number] Abdominal pain, acute, right upper tariq TECHNIQUE: Multiaxial CT images of the abdomen and pelvis were performed following the use of intravenous contrast. A dose lowering technique was utilized adhering to the principles of ALARA. COMPARISON STUDY: 07/06/2016 FINDINGS: Minimal atelectasis right base. Lung bases otherwise are clear. Liver is uniform. Pancreas is unremarkable. Kidneys enhance uniformly. An inferior vena caval filter is present in good position. There are stable postoperative changes to the lumbar spine. Bowel pattern is considered nonobstructive. Findings of mild chronic sigmoid diverticulosis. Mild bladder wall thickening is present. IMPRESSION: 1. Moderate bladder wall thickening. 2. Mild chronic sigmoid diverticulosis. 3. No acute process of the abdomen or pelvis. The above report was generated using voice recognition software. It may contain grammatical, syntax or spelling errors. Electronically signed by: Ced Packer M.D. 08/15/2017 7:55 AM Dictated Date/Time: 08/15/2017 7:49 AM
== END | disposition home or self-care (01) ==
LOC: C.CTS 07:22
PROVIDERS: ATTEND Nurse Practitioner
DX: K85.90 Acute pancreatitis without necrosis or infection, unspecified (principal); R10.11 Right upper quadrant pain; N32.89 Other specified disorders of bladder

== ENCOUNTER → 2017-08-19 | Outpatient (CLI) | payer OTHER ==
[~2017-08-19] MED LIST changes: -OPTIRAY 320 IV PRN
--- NOTE | 2017-08-19 08:48 | DIAGNOSTIC IMAGING REPORT ---
ABDOMINAL ULTRASOUND, RIGHT UPPER QUADRANT HISTORY: Generalized abdominal pain.. COMPARISON: Abdomen and pelvis CT 08/15/2017. Abdominal ultrasound 09/11/2016. FINDINGS: Pancreas: The pancreatic tail is obscured by overlying bowel gas. The remaining portions of the pancreas are within normal limits. Liver: The liver is echogenic consistent with fatty change. Gallbladder: No gallbladder wall thickening. No gallstones. CBD: 3 mm. Right kidney: No hydronephrosis. IMPRESSION: 1. Normal gallbladder. No gallstones. 2. Hepatic steatosis. Electronically signed by: Jason Melendez M.D. 08/19/2017 8:47 AM Dictated Date/Time: 08/19/2017 8:46 AM
[2017-08-19 11:03] LABS: BASO % 0.3 %; BASO ABS # 0.03 K/uL (0-0.2); EOS % 1.3 %; EOS ABS # 0.12 K/uL (0-0.5); HEMATOCRIT 47.4 % (42-52); HEMOGLOBIN 17.4 g/dL (14.0-18.0); IG# 0.03 K/uL (0.00-0.02); LYMPH % 23.6 %; LYMPH ABS # 2.16 K/uL (1.2-3.4); MEAN CELL VOLUME 93.9 fL (80-100); MEAN CORPUSCULAR HEMOGLOBIN 34.5 pg (25-34); MEAN CORPUSCULAR HGB CONC 36.7 g/dl (32-36); MEAN PLATELET VOLUME 10.4 fL (7.4-10.4); MONO % 6.6 %; NEUT % 67.9 %; NEUT ABS # 6.21 K/uL (1.4-6.5); PLATELET COUNT 155 K/uL (130-400); RED CELL DISTRIBUTION WIDTH CV 12.4 % (11.5-14.5); RED CELL DISTRIBUTION WIDTH SD 42.2 fL (36.4-46.3); WHITE BLOOD COUNT 9.15 K/uL (4.8-10.8)
[2017-08-19 11:24] LABS: ALBUMIN 4.3 gm/dl (3.4-5.0); ALT/SGPT 31 U/L (12-78); BLOOD UREA NITROGEN 8 mg/dl (7-18); CALCIUM 9.3 mg/dl (8.5-10.1); CARBON DIOXIDE 29 mmol/L (21-32); CREATININE 1.11 mg/dl (0.60-1.40); GLUCOSE 101 mg/dl (70-99); LIPASE 241 U/L (73-393); SODIUM 137 mmol/L (136-145)
[2017-08-19 11:26] LABS: ALKALINE PHOSPHATASE 121 U/L (45-117); AST/SGOT 19 U/L (15-37)
== END | disposition home or self-care (01) ==
LOC: C.ULTRBC 08:18
PROVIDERS: ATTEND Registered Nurse
DX: R10.11 Right upper quadrant pain (principal); K85.90 Acute pancreatitis without necrosis or infection, unspecified; R74.8 Abnormal levels of other serum enzymes

== ENCOUNTER → 2017-09-02 | Outpatient (CLI) | payer OTHER ==
[~2017-09-02] MED LIST changes: +GADAVIST IV PRN
--- NOTE | 2017-09-02 12:35 | DIAGNOSTIC IMAGING REPORT ---
MRI ABDOMEN COMBO CLINICAL HISTORY: R74.8 Serum lipase elevation K85.90 Pancreatitis R10.11 abdominal pain TECHNIQUE: Imaging was performed prior to and following IV contrast injection. The patient received 9.5 cc of intravenous Gadavist. COMPARISON STUDY: CT scan dated 08/15/2017 FINDINGS: Imaging was performed in the coronal and axial planes. There are no suspicious areas of marrow replacement. There is no pathologic bowel dilatation. There are no transition zones indicate bowel obstruction. No hepatic masses are visualized. There is no evidence of intra or extrahepatic biliary ductal dilatation. There is no evidence of pancreatic ductal dilatation. No gallbladder abnormalities are visualized. No focal hepatic masses are visualized. No splenic masses are visualized. No renal masses are visualized. No adrenal masses are visualized. No pancreatic masses are visualized. There are no peripancreatic fluid collections. There are postsurgical changes present within the spine. There is no evidence of abdominal aortic dilatation. There is IVC artifact, consistent with an IVC filter. IMPRESSION: 1. No pathologic masses identified. 2. No evidence of ductal dilatation. 3. No evidence of pathologic bowel dilatation. 4. No peripancreatic fluid collections. No evidence of peripancreatic edema. Electronically signed by: Josse Low M.D. 09/02/2017 12:34 PM Dictated Date/Time: 09/02/2017 12:25 PM
== END | disposition home or self-care (01) ==
LOC: C.MRI 11:22
PROVIDERS: ATTEND Registered Nurse
DX: K85.90 Acute pancreatitis without necrosis or infection, unspecified (principal); R10.11 Right upper quadrant pain; R74.8 Abnormal levels of other serum enzymes

== ENCOUNTER 2018-10-12 22:45 | Observation (INO) ==
--- OUTSIDE RECORDS SUMMARY | 2018-10-12 22:49 | External Medical Summary | Continuity of Care Document ---
:1960 Author Name Efrain Buckley, Provider Address Unavailable Unavailable , Care Team Providers Name Role Phone Rebecca BRUNNER M.D., Pedrito Degroot Unavailable [email or web address] Cathleen Carlton PA-C Unavailable [email or web address] Lelia Buckley Unavailable [email or web address] Cal SALAS Unavailable [email or web address] Zane Higginbotham PA-C Unavailable [email or web address] KANNAN FERNANDEZ M.D., [place] Unavailable Unavailable Unavailable Unavailable Unavailable Problems Nasal congestion (478.19) (R09.81) Acute maxillary sinusitis (461.0) (J01.00) Acquired deviated nasal septum (470) (J34.2) Hypertrophy of nasal turbinates (478.0) (J34.3) Chronic maxillary sinusitis (473.0) (J32.0) Visit for pre-operative examination (V72.84) (Z01.818) Arthritis (716.90) (M19.90) Hyperlipidemia (272.4) (E78.5) Encounter for prostate cancer screening (V76.44) (Z12.5) Need for prophylactic measure (V07.9) (Z29.9) Pain and swelling of lower extremity, left (729.5) (M79.605) Visual disturbance, subjective (368.10) (H53.10) Migraines (346.90) (G43.909) ETD (Eustachian tube dysfunction), left (381.81) (H69.82) 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) BMI 31.0-31.9,adult (V85.31) (Z68.31) Abdominal pain, acute, right upper quadrant (789.01) (R10.11 ) Pancreatitis (577.0) (K85.90) Serum lipase elevation (790.5) (R74.8) Deep vein thrombosis (DVT) of iliac vein (453.41) (I82.429) Pulmonary emboli (415.19) (I26.99) Presence of IVC filter (V45.89) (Z95.828) Anxiety (300.00) (F41.9) Palpitations (785.1) (R00.2) Weakness of left foot (734) (M21.42) Herniated disc (722.2) Back pain, chronic (724.5) (M54.9) Lumbar radicular pain (724.4) (M54.16) Elevated glucose (790.29) (R73.09) 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 Ina Fernandez III Start: 13-Sep-2017 Quantity: 1 53 Tablet Box Refills: 0 Chantix Continuing Month Jp 1 MG Oral T ablet; TAKE DIRECTED PER PACKAGE INSTRUCTIONS. Ina Fernandez III Start: 13-Sep-2017 Quantity: 1 56 Tablet Box Refills: 4 LORazepam 0.5 MG Oral Tablet; TAKE 1 TABLET Every 6 ho urs ERIC Valenzuela Start: 05-Mar-2018 Quantity: 30 Refills: 0 Cyclobenzaprine HCl - 10 MG Oral Tablet; TAKE 1 TABLET 3 TIMES DAILY NEEDED. MARITZA Mccall Start: 11-Aug-2018 Quantity: 30 Refills: 1 Procedures History of Biopsy Skin Status: Completed History of Fusion / Refusion Of Vertebrae Status: Completed History of Appendectomy Status: Complete d History of Back Surgery Status: Complete d History of Interruption Inferior Vena Cava Robert Filter Status: Completed Placement Immunizations Influenza On: 03-May-2005 Influenza On: 04-Apr-2007 Influenza On: 26-Feb-2009 Influenza On: 27-Mar-2010 Influenza On: 17-Apr-2011 Influenza On: 15-Feb-2012 Influenza On: 03-May-2016 Pneumococcal polysaccharide vaccine, 23 valent On: 6 Family History Mother Family history of Cancer Status: Active Family history of Diabetes Mellitus (V18.0) Status: Active Family history of malignant neoplasm of breast (V16.3) (Z80. 3) Status: Active uncle Family history of Cancer Status: Active Family history of Diabetes Mellitus (V18.0) Status: Active Brother Family history of Diabetes Mellitus (V18.0) Status: Active Father Family history of COPD, severe (496) (J44.9) Status: Active Family history of pulmonary embolism (V17.49) (Z82.49) Statu s: Active Grandmother Family history of myocardial infarction (V17.3) (Z82.49) Sta tus: Active uncle Family history of malignant neoplasm of prostate (V16. 42) (Z80.42) Status: Active Social History - Smoking Status Current every day smoker Plan of Treatment Planned Observations Planned Goals not documented Results No Known Results Results not documented Encounters Appointment; Holly Mccall CRNP 09-Sep-2018 11:00 Encounter Diagnosis: Problem not documented Appointment; Holly Mccall CRNP 11-Aug-2018 17:00 Encounter Diagnosis: Problem not documented Appointment; Khanh Lozada M.D. 09-Jun-2018 13:00 Encounter Diagnosis: Problem not documented Appointment; Latanya Higginbotham PA-C 05-Mar-2018 16:15 Encounter Diagnosis: Problem not documented Appointment; Pedrito Fernandez III, M.D. 13-Sep-2017 10:50 Encounter Diagnosis: Problem not documented Appointment; Tereza Luo CRNP 16-Aug-2017 13:00 Encounter Diagnosis: Problem not documented Appointment; Holly Mccall CRNP 14-Aug-2017 13:45 Encounter Diagnosis: Problem not documented Appointment; Nadir Quigley M.D. 10-Dec-2016 13:00 Encounter Diagnosis: Problem not documented Appointment; Pedrito Fernandez III, M.D. 07-Nov-2016 8:50 Encounter Diagnosis: Problem not documented
[2018-10-12] MEDS ORDERED: ONDANSETRON INJ 2 MG/ML 2 ML VIAL IV STA (23:08)
--- NOTE | 2018-10-12 23:27 | Emergency Department Note ---
History of Present Illness General Chief complaint: Back Injury/Pain Stated complaint: LOW BACK PAIN SINCE SURGERY ON 10/09/18 History of Present Illness Maximum Pain Intensity: 9 This 57-year-old presents to the ER complaining of severe low back pain that radiates down his left leg Location: Back and leg Quality: Severe Severity: Severe Duration: Past day Timing: Patient had surgery on by Dr. Valladares and was discharged yesterday for [place] Context: Pain got severe and patient came in Modifying factors: better with standing; worse with activity Patient states the pain was so severe he can barely walk. He cannot sit down. He cannot bear weight on the leg. Patient denies fevers, drainage, vomiting, diarrhea, urinary problems, injury. Patient denies loss of bowel bladder control, saddle anesthesia, chills. He states his leg does not feel weak but he cannot bear weight on it. Home Medications Home Medications Medication Instructions Recorded Confirmed Type apixaban [Eliquis] 2.5 mg PO BID 10/12/18 10/12/18 History gabapentin 300 mg PO HS 10/12/18 10/12/18 History Allergies Allergy/AdvReac Type Severity Reaction Status Date / Time Penicillins AdvReac Mild NAUSEA/VOMI Verified 10/12/18 23:27 TING Past Med/Surg History Medical History Back pain Pulmonary embolism Surgical History History of back surgery Social History Feels Safe at Home: Yes Smoking Status: Current every day smoker Review of Systems All systems reviewed & are unremarkable except as noted in HPI & below Physical Exam Vital Signs Vital Signs - 24 hr 10/12/18 22:49 10/12/18 23:32 10/12/18 23:36 Temperature 37.3 C Temperature Source Oral Sepsis Action Taken by Nursing No Action Required Pulse Rate 113 H Pulse Rate [Apical] 99 H Pulse Rhythm [Apical] Regular Respiratory Rate 20 18 Respiratory Effort / Characteristics Non-Labored Respiratory Depth Normal Normal Blood Pressure 153/95 H Blood Pressure [Right Arm] 148/97 H Blood Pressure Mean 114 Blood Pressure Mean [Right Arm] 114 Pulse Oximetry 97 100 100 Oxygen Delivery Method Room Air Room Air Room Air 10/13/18 00:13 10/13/18 01:40 Temperature Temperature Source Sepsis Action Taken by Nursing Pulse Rate Pulse Rate [Apical] 83 Pulse Rhythm [Apical] Regular Respiratory Rate 16 14 Respiratory Effort / Characteristics Respiratory Depth Normal Blood Pressure Blood Pressure [Right Arm] 139/65 Blood Pressure Mean Blood Pressure Mean [Right Arm] 89 Pulse Oximetry 100 95 Oxygen Delivery Method Room Air Room Air VITALS: Vitals are noted on the nurse's note and reviewed by myself. Vital signs hypertensive. GENERAL: White male who appears in pain unable to bear weight in the leg using crutches, in no acute distress, nondiaphoretic, well-developed well-nourished. SKIN: The skin was without rashes, erythema, edema, or bruising. There is no tenting of the skin. Capillary reflex less than 2 seconds. HEAD: Normocephalic atraumatic. EARS: External auditory canals clear EYES: Pupils equal round and reactive to light and accommodation. Conjunctivae without injection, sclerae without icterus. Extraocular movements intact. NOSE: Patent, turbinates without inflammation or discharge. MOUTH: Mucous membranes moist. Pharynx without erythema or exudate. Uvula midline. Airway patent. Tongue does not deviate. NECK: Supple without nuchal rigidity. No lymphadenopathy. No thyromegaly. Cervical spine is nontender. No JVD. HEART: Regular rate and rhythm LUNGS: Clear to auscultation bilaterally without wheezes, rales or rhonchi. No retractions or accessory muscle use. ABDOMEN: Positive bowel sounds x 4. Normal tympanic percussion. Soft, nontender, without masses or organomegaly. Love sign negative. No guarding or rebound tenderness. No CVA tenderness MUSCULOSKELETAL: No muscle atrophy, erythema, or edema noted. Lumbar surgical incision intact without signs of infection or drainage or dehiscence. T and L- spine nontender to palpation. Positive straight leg raise on the left. Patellar reflexes +2 equal and present bilaterally. 5 out of 5 strength throughout. NEURO: Patient was alert and oriented to person place and time. Normal sensation to light and sharp touch. No focal neurological deficits. Course Administered Medications Gadobutrol (Gadavist 65ml) 9.6 ml IV ONCE PRN PRN Reason: Interaction Checking Stop: 10/17/18 01:17 Last Admin: 10/13/18 00:56 Dose: 9.6 ml Documented by: [id number] Hydromorphone HCl (Dilaudid) 1 mg IV Q15M PRN PRN Reason: Pain Stop: 10/26/18 23:07 Last Admin: 10/13/18 00:17 Dose: 1 mg Documented by: [id number] Admin: 10/12/18 23:28 Dose: 1 mg Documented by: [id number] Discontinued Medications Ondansetron HCl (Zofran) 4 mg IV NOW STA Stop: 10/12/18 23:09 Last Admin: 10/12/18 23:28 Dose: 4 mg Documented by: [id number] Medical Decision Making Medical Records Attestation: I reviewed the patient's medical records. Home Medications Current Medication List: was personally reviewed by me Laboratory Data Attestation: I reviewed the patient's lab results. Result diagrams: 10/12/18 23:14 10/12/18 23:14 Lab Results 10/12/18 10/12/18 10/12/18 Range/Units 23:14 23:14 23:39 WBC 14.02 H (4.8-10.8) K/uL RBC 4.21 L (4.7-6.1) M/uL Hgb 14.4 (14.0-18.0) g/dL Hct 39.6 L (42-52) % MCV 94.1 (80-100) fL MCH 34.2 H (25-34) pg MCHC 36.4 H (32-36) g/dL RDW Std Deviation 42.9 (36.4-46.3) fL RDW Coeff of Tamia 12.5 (11.5-14.5) % Plt Count 129 L (130-400) K/uL MPV 9.8 (7.4-10.4) fL Immature Gran % (Auto) 0.3 % Neut % (Auto) 72.7 % Lymph % (Auto) 17.1 % Brooks % (Auto) 9.4 % Eos % (Auto) 0.4 % Baso % (Auto) 0.1 % Immature Gran # (Auto) 0.04 H (0.00-0.02) K/uL Neut # (Auto) 10.19 H (1.4-6.5) K/uL Lymph # (Auto) 2.40 (1.2-3.4) K/uL Brooks # (Auto) 1.32 H (0.11-0.59) K/uL Eos # (Auto) 0.06 (0-0.5) K/uL Baso # (Auto) 0.01 (0-0.2) K/uL ESR 37 H (0-14) mm/hr Sodium 136 (136-145) mmol/L Potassium 3.6 (3.5-5.1) mmol/L Chloride 102 (98-107) mmol/L Carbon Dioxide 27 (21-32) mmol/L Anion Gap 7.0 (3-11) BUN 11 (7-18) mg/dl Creatinine 1.06 (0.6-1.4) mg/dl Est Cr Clr Drug Dosing 93.5 ml/min Est GFR ( Amer) 91.1 Est GFR (Non-Af Amer) 78.6 BUN/Creatinine Ratio 10.6 (10-20) Glucose 105 H (70-99) mg/dl Calcium 8.8 (8.5-10.1) mg/dl Total Bilirubin 0.6 (0.2-1) mg/dl AST 18 (15-37) U/L ALT 30 (12-78) U/L Alkaline Phosphatase 89 (45-117) U/L C-Reactive Protein 6.54 H (0-0.29) mg/dl Total Protein 7.3 (6.4-8.2) gm/dl Albumin 3.4 (3.4-5.0) gm/dl Globulin 3.9 (2.5-4.0) gm/dl Albumin/Globulin Ratio 0.9 (0.9-2) Imaging Data Attestation: I personally reviewed and interpreted this imaging study as follows: Prescription Drug Monitoring [place] Drug Monitoring Program reviewed and no issues identified Blood Pressure Blood Pressure Findings: Elevated blood pressure Blood Pressure Disposition: Referred to patients primary care provider [facility] Narrative Prior records/ancillary studies reviewed. Triage Nursing notes reviewed. Additional history obtained from family. The patient's history was concerning for back pain. Differential diagnosis: Etiologies such as postsurgical complication, musculoskeletal, disc herniation, fracture, aortic disease, metastatic disease, cord compression, discitis, infection, renal colic, gastrointestinal, acute exacerbation of chronic back pain, sciatica, cauda equina, as well as others were entertained. Physical findings: As above. No focal neurologic findings noted. ER treatment provided: Nathan Peter I requested the records from [facility] On reassessment the patient felt better. Diagnostics interpreted by me: The labs revealed leukocytosis, most likely stress reaction from steroids Mildly elevated inflammatory markers Imaging studies: Preliminary Findings Only See Final Report For Complete Findings MRI L SPINE : No acute fracture. No evidence for osteomyelitis discitis. A fluid collection at the laminectomy sites at L4 and L5 measures up to 5 cm. There is no associated spinal canal stenosis. Motion degraded exam. An additional fluid collection measuring 3 cm appears to be present at the left laminectomy site at the inferior L2 level. This collection does cause si gnificant spinal canal stenosis and indentation of the left posterior aspect of the thecal sac. Neither fluid collection demonstrates peripheral enhancement. No evidence for abscess. Radiologist: Scott Salas MD Consultation: A consultation was placed with surgery, Dr. Reddy. The case was discussed and diagnostics were reviewed. He will admit the patient for pain management. This appears to be consistent with intractable back pain. Patient still in severe amount of pain. He was given multiple rounds of pain meds. Spine was consulted. Patient is agreeable treatment plan of admission. By the evaluation outlined above emergent etiologies such as fracture, aortic disease, metastatic disease, infection, renal colic, gastrointestinal, cord compression, cauda equina, as well as others were deemed relatively unlikely. The pt informed about the findings as listed above. All questions were answered and pleased with the treatment. Referral: Case reviewed with my attending The chart was completed utilizing [employer] Speech voice recognition software. Grammatical errors, random word insertions, pronoun errors, and incomplete sentences are an occassional consequence of this system due to software limitations, ambient noise, and hardware issues. Any formal questions or concerns about the content, text, or information contained within the body of this dictation should be directly addressed to the physician senior assistant manager for clarification. Impression & Plan Intractable low back pain Discharge Plan Visit Data Chief Complaint: Back Injury/Pain Stated Complaint: LOW BACK PAIN SINCE SURGERY ON 10/09/18 ED Provider: Nadir Mathews ED Midlevel Provider: Shabnam Rhoades Discharge Problem: Intractable low back pain Patient Disposition: Admitted As Inpatient Condition: Fair Forms Stand Alone Forms: My [facility] Prescriptions Prescriptions: No Action gabapentin 300 mg Capsule 300 mg PO HS RF: 0 Eliquis 2.5 mg tablet 2.5 mg PO BID RF: 0 Referrals Referrals: Pedrito Fernandez III, MD [Primary Care Provider] -
[2018-10-12] MEDS: HYDROmorphone INJ 1 MG/ML SYRINGE IV PRN (23:28)
[2018-10-12 23:51] LABS: Basophils # (auto) 0.01 K/uL (0-0.2); Basophils % (auto) 0.1 %; Eosinophils # (auto) 0.06 K/uL (0-0.5); Eosinophils % (auto) 0.4 %; Hematocrit (blood only) 39.6 % (42-52); Hemoglobin 14.4 g/dL (14.0-18.0); Immature Granulocytes # (auto) 0.04 K/uL (0.00-0.02); Immature Granulocytes % (auto) 0.3 %; Lymphocytes % (auto) 17.1 %; Mean Corpuscular Hgb Conc 36.4 g/dL (32-36); Mean Corpuscular Volume 94.1 fL (80-100); Mean Platelet Volume 9.8 fL (7.4-10.4); Monocytes # (auto) 1.32 K/uL (0.11-0.59); Monocytes % (auto) 9.4 %; Neutrophils # (auto) 10.19 K/uL (1.4-6.5); Neutrophils % (auto) 72.7 %; Platelet Count 129 K/uL (130-400); RDW Coefficient of Variation 12.5 % (11.5-14.5); RDW Standard Deviation 42.9 fL (36.4-46.3); Red Blood Count 4.21 M/uL (4.7-6.1); White Blood Count 14.02 K/uL (4.8-10.8)
[2018-10-13 00:10] LABS: Albumin Level 3.4 gm/dl (3.4-5.0); BUN Creatinine Ratio 10.6 (10-20); C Reactive Protein 6.54 mg/dl (0-0.29); Calcium 8.8 mg/dl (8.5-10.1); Creatinine Clr Calc Pharmacy 93.5 ml/min; Est GFR (African American) 91.1; Est GFR (Non-African American) 78.6; Potassium 3.6 mmol/L (3.5-5.1)
[2018-10-13 00:13] LABS: Albumin Globulin Ratio 0.9 (0.9-2); Bilirubin,Total 0.6 mg/dl (0.2-1); Globulin 3.9 gm/dl (2.5-4.0); Total Protein 7.3 gm/dl (6.4-8.2)
[2018-10-13] MEDS: HYDROmorphone INJ 1 MG/ML SYRINGE IV PRN ×6 (00:17→21:55)
[2018-10-13] MEDS ORDERED: GADOBUTROL 65ML VIAL IV PRN (01:18)
[2018-10-13] MEDS ORDERED: Nursing to Pharmacy Communication ONE (03:50)
[2018-10-13] MEDS ORDERED: ONDANSETRON INJ 2 MG/ML 2 ML VIAL IV PRN (03:58)
[2018-10-13] MEDS ORDERED: LORazepam 1 MG/2 ML VIAL IV PRN (03:58)
[2018-10-13] MEDS: SODIUM CHLORIDE 0.9% 1000ML 1,000 ML IV SCH ×2 (05:11→14:33)
--- NOTE | 2018-10-13 07:09 | Magnetic Resonance Report ---
MRI OF THE LUMBAR SPINE WITH AND WITHOUT CONTRAST CLINICAL HISTORY: severe back pain, recent OR COMPARISON STUDY: Lumbar spine MRI August 15, 2018. TECHNIQUE: Utilizing a 1.5 Karine magnet and dedicated coil, multiplanar, multiecho imaging of the alyssa ar spine was performed before and after uneventful IV administration of 9.6 mL of Gadavist. FINDINGS: For purposes of numbering on this exam, the L5-S1 disc space is assigned to axial image 27 of 30. Hai tebral body heights are maintained. Note is made of a posterior decompression. There is a bilateral p edicle screw fusion from L2 through S1. L2-L3 decompression and fusion is new since MRI of August 15, 2018. A discectomy at this level is also noted. There is also a previous discectomy at the L4-L5 leve l. An old laminectomy bed fluid collection at the L4-L5 level which measures 5.1 x 1.9 cm is unchange d since MRI of August 15, 2018. No is made of a 3.2 x 1.7 cm laminectomy bed fluid collection at the l eft L2-L3 level which is new since previous MRI. This has mass effect on the posterior aspect of the thecal sac and results in moderate to severe stenosis of the left aspect of the canal. Otherwise, the central canal is patent.. There is mild associated enhancement. There is no rim-enhancing fluid ryan ection. There is no evidence for discitis/osteomyelitis. No epidural hematoma is identified. Paravert ebral soft tissues are unremarkable. Neural foramen are patent. IMPRESSION: 1. Interval L2-L3 discectomy, posterior decompression and bilateral pedicle screw fusion with a nonsp ecific 3.2 x 1.7 cm laminectomy bed fluid collection at the L2-L3 level which has mass effect upon th e posterior aspect of the thecal sac and results in moderate to severe stenosis of the left aspect of the central canal. Otherwise, patent central canal. Mild enhancement within the operative bed. No ri m-enhancing fluid collection. 2. Previous multilevel fusion and discectomy, as described above. Electronically signed by: Jerson Villaseñor M.D. 10/13/2018 7:07 AM
--- NOTE | 2018-10-13 10:46 | History & Physical Report ---
Date of Service October 13, 2018 Assessment & Plan (1) Intractable low back pain: Patient is already feeling much better. No need for urgent I&D of postoperative seroma. We will add IV Decadron for the next 24 hours. Continue with current pain control measures. Limited activity. DVT prophylaxis is in the form of teds and SCDs. Anticipate discharge home tomorrow. He is comfortable with this plan. History of Present Illness Primary Care Provider: Pedrito Fernandez MD This a pleasant 57-year-old gentleman that presented to the emergency room late last evening. This was for lower back and left leg pain. Patient had undergone an adjacent level fusion by Dr. Ro in [place] on October 09. He was discharged home on October 11. His pain was well controlled at that point. The following day he presented with left lower extremity pain in the same pattern it was preoperatively. It involves the left buttock anterior lateral thigh to the knee. Upon examining him this morning he states he ac tually slept and is feeling much better. He is anxious to return home. Denies bowel or bladder dysfunction. Denies right lower extremity radiculopathy. Denies fevers or chills at home. Was ambling independently at home. Was discharged home on Percocet but unfortunately this was not controlling his pain. He therefore presented to the emergency room. See above Allergies Allergy/AdvReac Type Severity Reaction Status Date / Time Penicillins AdvReac Mild NAUSEA/VOMI Verified 10/12/18 23:27 TING Home Medications Home Medications Medication Instructions Recorded Confirmed Type Eliquis 2.5 mg PO BID 10/12/18 10/12/18 History gabapentin 300 mg PO HS 10/12/18 10/12/18 History Past Med/Surg History Medical History Back pain Pulmonary embolism Surgical History History of back surgery Social History Preferred Language: [place] Communication Ability: Effective Cosmetologist Apprentice Required: No Beliefs That Will Affect Care: None Current Living Situation: Family Feels Safe at Home: Yes Safety Concerns: Feels Safe At This Time Smoking Status: Current every day smoker Tobacco Type: cigarettes Cigarettes Per Day: 20 Hx Alcohol Use: No Hx Substance Use: No Review of Systems Review of Systems: All systems reviewed & are unremarkable except as noted in HPI & below Physical Exam Physical Exam: He is in no obvious distress. Alert and oriented x3. Cooperative with exam. He has negative tension signs bilaterally. Negative logrolling bilaterally. Motor testing is 5/5 bilateral EHL, dorsiflexion, plantarflexion, inversion eversion, quadriceps, hamstrings. Neurovascular intact. Calves are soft nontender. RENATA hose intact bilaterally. Lumbar incision have some modest edema. There is some serous drainage. It has not saturated the dressing. No erythema. No ecchymosis. Constitutional: WD/WN, vitals as above Eyes: normal visual chatterjee by confrontation ENMT: external ear and nose normal, oropharynx normal Neck: normal visual inspection Respiratory: normal respiratory effort Cardiovascular: Vessels: dorsalis pedis pulses present Extremities: normal capillary refill Gastrointestinal (Abdomen): Inspection/Auscultation: abdomen normal to inspection Musculoskeletal: no cyanosis or clubbing, extremities motor strength 5/5 E xtremities: strength 5/5 throughout Skin: no rashes, warm and dry Neurologic: patellar DTR's 2+ bilat, sensation intact deep tendon reflexes 2+ bilaterally and moves all extremities Psychiatric: Speech: normal rate/rhythm/volume of speech Results & Data Vital Signs (Past 12 Hours) Vital Signs Temp Pulse Pulse Resp BP BP Pulse Ox 10/13/18 07:42 37.3 C 81 16 122/64 92 10/13/18 03:56 37.4 C 93 H 16 137/77 96 10/13/18 03:45 37.4 C 93 H 16 137/77 96 10/13/18 02:59 63 16 125/56 L 95 10/13/18 01:40 83 14 139/65 95 10/13/18 00:13 16 100 10/12/18 23:36 99 H 18 148/97 H 100 10/12/18 23:32 100 10/12/18 22:49 37.3 C 113 H 20 153/95 H 97 Diagnostic Findings MRI OF THE LUMBAR SPINE WITH AND WITHOUT CONTRAST CLINICAL HISTORY: severe back pain, recent OR COMPARISON STUDY: Lumbar spine MRI August 15, 2018. TECHNIQUE: Utilizing a 1.5 Karine magnet and dedicated coil, multiplanar, multiecho imaging of the lumbar spine was performed before and after uneventful IV administration of 9.6 mL of Gadavist. FINDINGS: For purposes of numbering on this exam, the L5-S1 disc space is assigned to axial image 27 of 30. Vertebral body heights are maintained. Note is made of a posterior decompression. There is a bilateral pedicle screw fusion from L2 through S1. L2-L3 decompression and fusion is new since MRI of August 15, 2018. A discectomy at this level is also noted. There is also a previous discectomy at the L4-L5 level. An old laminectomy bed fluid collection at the L4-L5 level which measures 5.1 x 1.9 cm is unchanged since MRI of August 15, 2018. No is made of a 3.2 x 1.7 cm laminectomy bed fluid collection at the left L2-L3 level which is new since previous MRI. This has mass effect on the posterior aspect of the thecal sac and results in moderate to severe stenosis of the left aspect of the canal. Otherwise, the central canal is patent.. There is mild associated enhancement. There is no rim-enhancing fluid collection. There is no evidence for discitis/osteomyelitis. No epidural hematoma is identified. Paravertebral soft tissues are unremarkable. Neural foramen are patent. IMPRESSION: 1. Interval L2-L3 discectomy, posterior decompression and bilateral pedicle screw fusion with a nonspecific 3.2 x 1.7 cm laminectomy bed fluid collection at the L2-L3 level which has mass effect upon the posterior aspect of the thecal sac and results in moderate to severe stenosis of the left aspect of the central canal. Otherwise, patent central canal. Mild enhancement within the operative bed. No rim-enhancing fluid collection. 2. Previous multilevel fusion and discectomy, as described above. Electronically signed by: Jerson Villaseñor M.D. 10/13/2018 7:07 AM Dictated: 10/13/18 0656 Code Status & VTE Plan VTE Prophylaxis Plan VTE Prophylaxis will be ordered: Yes Critical Care Time Critical Care Time: No Prolonged Care Time Prolonged Care Time: No Supervising Physician Co-Signing Physician Notes Dr. Johnnie Reddy
[2018-10-13] MEDS: OXYCODONE HCL IR 5 MG TAB (IMMEDIATE RELEASE) PO PRN ×2 (14:32→18:32)
[2018-10-13] MEDS: DEXAMETHASONE SOD PHOSPHATE 8 MG in SYRINGE 0 ML IV SCH ×2 (14:33→21:51)
[2018-10-14] MEDS: SODIUM CHLORIDE 0.9% 1000ML 1,000 ML IV SCH (00:13)
[2018-10-14] MEDS: OXYCODONE HCL IR 5 MG TAB (IMMEDIATE RELEASE) PO PRN (00:33)
[2018-10-14] MEDS: DEXAMETHASONE SOD PHOSPHATE 8 MG in SYRINGE 0 ML IV SCH (06:24)
--- NOTE | 2018-10-14 12:49 | Discharge Summary ---
Date of Service October 14, 2018 Admission HPI Per Admitting Provider See above Principal Diagnosis Back pain with radiculopathy Discharge Data Allergies Allergy/AdvReac Type Severity Reaction Status Date / Time Penicillins AdvReac Mild NAUSEA/VOMI Verified 10/12/18 23:27 TING Consultations 10/13/18 02:33 ED Decision to Admit Stat Ordered Studies 10/13/18 00:12 MR lumbar spine wo/w con Urgent Hospital Course (1) Intractable low back pain: Patient is admitted with intractable back and left leg pain. He responded appropriately with rest and IV steroids. Is in function improved dramatically. He was subsequently discharged home. Discharge orders and instructions found in the chart for further review. Total Time Total Time Spent Total Time Spent (In Minutes): 10 minutes Discharge Plan Discharge Items Patient Disposition: Home - Self-Care Reason For Visit: BACK PAIN Discharge Diagnosis: lumbar stenosis Condition: Fair Discharge Goals: Decrease discomfort Activity: Per 'Additional Instructions' section Non-emergency contact: Primary Care Provider Call non-emergency contact if: you have any medication questions Follow-up/Referrals: Pedrito Fernandez III, MD [Primary Care Provider] - Diet: Regular Addtl Provider Instructions: ACTIVITY RECOMMENDATIONS: SELF CARE INSTRUCTIONS AFTER THORACIC/LUMBAR FUSIONS 1. You may walk to your tolerance. It is good exercise for your legs and back. Expect some back and intermittent leg aches and pains. 2. You may perform "counter-top" level activities (make a sandwich, emily with a project, etc.). 3. No bending or lifting of more than 10 pounds or back twisting of any nature (roll like a log when turning in bed). 4. You may ride in a car for 20-30 minutes at a time. No driving until after your first visit with your doctor. 5. Frequent changes of position and restricting sitting to 30 minutes at a time will help limit the amount of back spasms and stiffness you may experience. 6. You may discontinue the use of ambulatory aids (cane, crutches, etc.) once your strength and confidence allow. 7. You may wind operations supervisor the shower and let water strike your incision when you arrive home at least once daily. Do not take a tub bath, sit in a hot tub or go into a swimming pool until after your first recheck in the office. SPECIAL CARE INSTRUCTIONS: VERY IMPORTANT TO READ AND REVIEW A. Your surgical incision has been closed with a cosmetic suture under the skin that will dissolve in about 6 weeks. In 14 days, you can use a pair of clean scissors and cut the suture that is left outside of the skin at the ends of your incision. 1. The small skin tapes can be removed 7 days after surgery if they have not fallen off by that point. 2. You may keep the wound open to air as much as possible to promote healing after post-op day number 5 unless told otherwise by your doctor. 3. If you think the wound looks like it is becoming infected (redness or worsening drainage) and/or you are experiencing fever, chill or worsening back pain and muscle spasms, contact the office so that we may evaluate you as soon as possible. B. Complications are uncommon, but please contact us if you have any signs or symptoms of: 1. wound infection (fever higher than 102.5 degrees F, redness, separation of wound, drainage, or increasing pain from the incision) 2. blood clots in legs (pain, swelling, redness and warmth in legs) 3. urinary tract infection (fever higher than 102.5 degrees F, burning upon urination or increased frequency of urination) 4. nerve problems (inability to walk on your toes or heels, numbness, loss of bowel or bladder control) 5. any other symptoms that concern you C. Please call the office at if you have any concerns or questions about your operation or recovery. D. No smoking! Smoking drastically decreases the chance of a solid fusion. E. Do not take any anti-inflammatory medications (Indocin, Advil, Motrin, Aspirin, Naprosyn, etc.) as these may inhibit the chance of a solid fusion. Tylenol is okay to take for pain. MANAGING PAIN AFTER SPINAL SURGERY 1. Narcotic medication is intended for short-term use and will be provided for surgical pain. Surgical pain usually lasts for a period of 4-6 weeks. Narcotic medication includes Percocet, Vicodin, Darvocet, Tylenol #3 or Lortab. 2. Longer-term pain is more appropriately treated with non-narcotic medication such as Tylenol ES. 3. Muscle spasm is not appropriately treated with narcotics. Muscle relaxers such as Soma, Flexeril or Skelaxin can be used along with Tylenol ES. 4. Remember that we all live with some "aches and pains". This is not unusual or uncommon after an injury or as we get older. a. Back pain is expected and may include muscle spasms for 4 to 6 weeks after surgery. The pain should gradually improve. If the pain worsens for no apparent reason, please contact the office. b. Intermittent leg pain may also be experienced and should not be concerned about unless it worsens for no apparent reason. If so, please contact the office. 5. We will provide appropriate medication within the normal guidelines of their prescribed use. We will also be very cautious and aware of potential abuse and extended duration of patients' medication needs. a. Pain medications are for your comfort and to assist with sleep and rest so that the tissue can heal. They are not provided in order to return to normal activity and should not be used through the day. To do so or worsening pain at night can result from ongoing tissue damage and dev elopment of tolerance to the prescribed medicine. 6. Please allow 2-3 days to process refills. Prescriptions will not be mailed but must be picked up at the office. FOLLOW UP VISIT: Keep your scheduled follow-up appointment. Any questions, please call the office at . Prescriptions: Continued gabapentin 300 mg Capsule 300 mg PO HS RF: 0 Eliquis 2.5 mg tablet 2.5 mg PO BID RF: 0 Stand-Alone Forms: [employer]/Other Patient Handouts: Back How Works, Back Pain Relieve, Safety Back Lifting, Safety Back Push Pull, Safety Back Sleep Pos, Safety Back Sit, Safety Back Stand, Safety Back Turning, Tips Back Post Op Discharge Orders: Discharge Order (Routine); Ordered 10/14/18 Ordered By: Johnnie Reddy Admission Data Admit Date/Time: 10/13/18 03:05 Attending Provider: Johnnie Reddy Admit Provider: Johnnie Reddy Primary Care Provider: Pedrito Fernandez III Other Providers: Johnnie Reddy Service: Surgical Services Other Interventions: Discharge Summary Assessment (RN) Last Done: 10/14/18 09:20 DC Date/Time DO NOT enter until pt leaves facility: 10/14/18 10:33
== END 2018-10-14 10:33 | disposition home or self-care (01) ==
LOC: 3E 22:45 → ED 22:45 → 3E 10-13 03:35